=== PATIENT | male | born 1990 | race Hispanic/Latino ===

== ENCOUNTER 2019-07-17 18:16 | Emergency (ER) | payer OTHER, SELFPAY ==
[2019-07-17] MEDS ORDERED: METOCLOPRAMIDE 10 MG/2mL INJ ONE (18:53)
[2019-07-17] MEDS ORDERED: NA CHLORIDE 0.9% 1,000 ML ONE (18:54)
[2019-07-17] MEDS ORDERED: dexAMETHasone 10 MG/ML VIAL ONE (18:54)
[2019-07-17] MEDS ORDERED: DIPHENHYDRAMINE 50 MG/ML VIAL ONE (18:54)
[2019-07-17] MEDS ORDERED: NA CHLORIDE 0.9% 50 ML IV ONE (18:54)
[2019-07-17] MEDS ORDERED: ONDANSETRON 4 MG/2 ML VIAL ONE (18:54)
--- NOTE | 2019-07-17 20:16 | EDPHYS ---
Physician Documentation [facility] Name: Hilario Lezama Age: 29 yrs Sex: Male : 1990 Arrival Date: 07/17/2019 Time: 18:17 Bed 6 Private MD: ED Physician Amarjit Osuna HPI: 07/16 18:40 This 29 yrs old Male presents to ER via Ambulatory with complaints of Headache cp - migraine. 18:40 The patient complains of pain to the top of head and forehead. Onset: The cp symptoms/episode began/occurred 1 hour(s) ago. 18:40 The patient describes the headache as aching. cp 18:40 Associated signs and symptoms: Pertinent positives: nausea, Photophobia vomiting, cp Pertinent negatives: altered mental status, fever, neck stiffness, sinus congestion, sinus tenderness, weakness. Severity of symptoms: in the emergency department the pain a " 10" out of "10". Headache History: The patient has had previous headaches and this one is similar to previous episodes. Historical: - Allergies: 18:33 No Known Allergies; ll1 - PMHx: 18:33 Migraines; ll1 - PSHx: 18:33 Tonsillectomy; ll1 - Social history:: Patient/guardian denies using alcohol, street drugs, tobacco products. ROS: 18:50 Constitutional: Negative for body aches, chills, fever, poor PO intake. cp 18:50 Eyes: Negative for injury, pain, redness, and discharge. cp 18:50 ENT: Negative for drainage from ear(s), ear pain, sore throat, difficulty swallowing, difficulty handling secretions. 18:50 Cardiovascular: Negative for chest pain. 18:50 Respiratory: Negative for cough, shortness of breath, wheezing. 18:50 Abdomen/GI: Positive for nausea and vomiting, Negative for abdominal pain, diarrhea, constipation. 18:50 Skin: Negative for rash. 18:50 Neuro: Positive for headache, Negative for altered mental status, weakness. 18:50 All other systems are negative. Exam: 18:55 Constitutional: The patient appears in no acute distress, alert, awake, non-toxic, well cp developed, well nourished. 18:55 Head/Face: Normocephalic, atraumatic. cp 18:55 Eyes: Periorbital structures: appear normal, Pupils: equal, round, and reactive to light and accomodation, Extraocular movements: intact throughout, Conjunctiva: normal, no exudate, no injection, Lids and lashes: appear normal, bilaterally. 18:55 ENT: External ear(s): are unremarkable, Ear canal(s): are normal, clear, TM's: bulging, is not appreciated, bilaterally, dullness, bilaterally, erythema, is not appreciated, bilaterally, Nose: is normal, Mouth: is normal, Posterior pharynx: is normal, airway is patent, no erythema, no exudate. 18:55 Neck: ROM/movement: is normal, is supple, without pain, no range of motions limitations, no meningismus, no nuchal rigidity. 18:55 Chest/axilla: Inspection: normal. 18:55 Cardiovascular: Rate: normal, Rhythm: regular. 18:55 Respiratory: the patient does not display signs of respiratory distress, Respirations: normal, no use of accessory muscles, labored breathing, is not present. 18:55 Abdomen/GI: Inspection: abdomen appears normal, Palpation: abdomen is soft and non-tender, in all quadrants. 18:55 Neuro: Orientation: to person, place \\T\\ time. Mentation: is normal, Cerebellar function: is grossly normal, Motor: moves all fours, strength is normal, Sensation: is normal, Gait: is steady. Vital Signs: 18:31 BP 147 / 102; Pulse 65; Resp 17; Temp 97.5; Pulse Ox 97% ; Pain 10/10; ll1 20:07 BP 128 / 85; Pulse 74; Resp 16; Pulse Ox 100% on R/A; Pain 3/10; jb4 MDM: 18:26 Patient medically screened. cp 19:00 Differential diagnosis: intracerebral hemorrhage, meningitis, meningoencephalitis, cp migraine, sinusitis, subarachnoid bleed, tension headache. 20:15 Data reviewed: vital signs, nurses notes, and as a result, I will discharge patient. cp 20:15 Counseling: I had a detailed discussion with the patient and/or guardian regarding: the cp historical points, exam findings, and any diagnostic results supporting the discharge/admit diagnosis, to return to the emergency department if symptoms worsen or persist or if there are any questions or concerns that arise at home. Response to treatment: the patient's symptoms have markedly improved after treatment. 04/26 18:39 Order name: IV; Complete Time: 18:53 cp Administered Medications: 18:55 Drug: NS 0.9% 1000 ml Route: IV; Rate: 1 bolus; Site: left antecubital; ph 19:30 Follow up: Response: No adverse reaction; IV Status: Completed infusion; IV Intake: jb4 1000ml 18:55 Drug: Benadryl 25 mg Route: IVP; Site: left antecubital; ph 19:30 Follow up: Response: No adverse reaction jb4 18:56 Drug: Zofran (Ondansetron) 4 mg Route: IVP; Site: left antecubital; ph 20:25 Follow up: Response: No adverse reaction; Nausea is decreased jb4 18:58 Drug: Decadron - Dexamethasone 10 mg Route: IVP; Site: left antecubital; ph 19:30 Follow up: Response: No adverse reaction; Pain is decreased jb4 19:00 Drug: Reglan 10 mg Route: IVP; Site: left antecubital; ph 20:00 Follow up: Response: No adverse reaction; Marked relief of symptoms jb4 Disposition: 07/17 10:08 Co-signature as Attending Physician, Amarjit Osuna MD I agree with the assessment and ines plan of care. Disposition: 07/17/19 20:15 Discharged to Home. Impression: Headache. - Condition is Stable. - Discharge Instructions: Migraine Headache. - Prescriptions for Imitrex 50 mg Oral Tablet - take 1 tablet by ORAL route one time - x 1 dose with fluids as early as possible after the onset of a migraine attack; if headache returns, the dose may be repeated after 2 hours, not to exceed a total daily dose of 4 tablets;. Zofran 4 mg Oral Tablet - take 1 tablet by ORAL route every 12 hours As needed; 20 tablet. - Medication Reconciliation Form, Thank You Letter, Antibiotic Education, Prescription Opioid Use form. - Follow up: Private Physician; When: 2 - 3 days; Reason: Recheck today's complaints. - Problem is an acute exacerbation. - Symptoms have improved. Signatures: Amarjit Osuna MD MD cha Hall, Patricia RN Amarjit Salinas ph, PA PA cp Bryson, James, RN RN jb4 Melina Osborn RN RN ll1 Corrections: (The following items were deleted from the chart) 04/26 20:26 20:15 07/17/2019 20:15 Discharged to Home. Impression: Headache. Condition is Stable. jb4 Forms are Medication Reconciliation Form, Thank You Letter, Antibiotic Education, Prescription Opioid Use. Follow up: Private Physician; When: 2 - 3 days; Reason: Recheck today's complaints. Problem is an acute exacerbation. Symptoms have improved. cp
--- NOTE | 2019-07-17 20:16 | ER ---
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 Couldn't hold down ll1 Excedrin. Coronavirus screen: Proceed with normal triage. Patient denies a cough. Patient denies shortness of breath or difficulty breathing. Patient denies measured and/or subjective temperature greater than 100.4F prior to today's visit. Patient denies travel on a cruise ship or to a country the [facility] currently lists as an affected area. Patient denies contact with known and/or suspected case of COVID-19. Ebola Screen: Patient denies travel to an Ebola-affected area in the 21 days before illness onset. Initial Sepsis Screen: Does the patient meet any 2 criteria? No. Patient's initial sepsis screen is negative. Does the patient have a suspected source of infection? No. Patient's initial sepsis screen is negative. Risk Assessment: Do you want to hurt yourself or someone else? Patient reports no desire to harm self or others. Onset of symptoms was July 17, 2019. 18:31 Method Of Arrival: Ambulatory ll1 18:31 Acuity: ANNA 3 ll1 Historical: - Allergies: 18:33 No Known Allergies; ll1 - PMHx: 18:33 Migraines; ll1 - PSHx: 18:33 Tonsillectomy; ll1 - Social history:: Patient/guardian denies using alcohol, street drugs, tobacco products. Screenin:11 Abuse screen: Denies threats or abuse. Denies injuries from another. Nutritional ph screening: No deficits noted. Tuberculosis screening: No symptoms or risk factors identified. Fall Risk None identified. Assessment: 19:05 General: Appears in no apparent distress. uncomfortable, well groomed, Behavior is ph calm, cooperative, appropriate for age. Pain: Complains of pain in forehead and top of head Pain currently is 10 out of 10 on a pain scale. Neuro: Level of Consciousness is awake, alert, obeys commands, Oriented to person, place, time, situation, Moves all extremities. Full function Speech is normal, Facial symmetry appears normal, Reports blurred vision headache frontal area, photophobia Denies weakness. Cardiovascular: Capillary refill < 3 seconds in bilateral fingers Patient's skin is warm and dry. Respiratory: Airway is patent Respiratory effort is even, unlabored, Respiratory pattern is regular, symmetrical. GI: Reports nausea, vomiting. Derm: Skin is intact, is healthy with good turgor, Skin is pink, warm \T\ dry. Musculoskeletal: Circulation, motion, and sensation intact. Range of motion: intact in all extremities. 19:23 Reassessment: Patient appears in no apparent distress at this time. Patient is alert, jb4 oriented x 3, equal unlabored respirations, skin warm/dry/pink. Pt reports pain has decreased to 8/10 and denies nausea and vomiting. 20:07 Reassessment: Patient appears in no apparent distress at this time. Patient and/or jb4 family updated on plan of care and expected duration. Pain level reassessed. Patient is alert, oriented x 3, equal unlabored respirations, skin warm/dry/pink. Pt rates pain at 3/10 Patient states feeling better. 20:23 Reassessment: Patient appears in no apparent distress at this time. Patient is alert, jb4 oriented x 3, equal unlabored respirations, skin warm/dry/pink. PT verbalized understanding of d/c and follow up instructions. Denies questions or concerns. Ambulated out of ED with steady gait. Vital Signs: 18:31 BP 147 / 102; Pulse 65; Resp 17; Temp 97.5; Pulse Ox 97% ; Pain 10/10; ll1 20:07 BP 128 / 85; Pulse 74; Resp 16; Pulse Ox 100% on R/A; Pain 3/10; jb4 ED Course: 18:17 Patient arrived in ED. am2 18:18 Amarjit Betancourt PA is PHCP. cp 18:18 Amarjit Osuna MD is Attending Physician. cp 18:32 Gala Abrams, GRECIA is Primary Nurse. ph 18:32 Triage completed. ll1 18:33 Arm band placed on Patient placed in an exam room, on a stretcher. ll1 18:33 Door closed. Lights dimmed. ll1 18:45 Inserted saline lock: 20 gauge in left antecubital area, using aseptic technique. kj1 19:11 Patient has correct armband on for positive identification. Bed in low position. ph 19:39 Primary Nurse role handed off by Gala Abrams RN jb4 19:39 Ever Salgado, RN is Primary Nurse. jb4 20:23 No provider procedures requiring assistance completed. IV discontinued, intact, jb4 bleeding controlled, No redness/swelling at site. Pressure dressing applied. Administered Medications: 18:55 Drug: NS 0.9% 1000 ml Route: IV; Rate: 1 bolus; Site: left antecubital; ph 19:30 Follow up: Response: No adverse reaction; IV Status: Completed infusion; IV Intake: jb4 1000ml 18:55 Drug: Benadryl 25 mg Route: IVP; Site: left antecubital; ph 19:30 Follow up: Response: No adverse reaction jb4 18:56 Drug: Zofran (Ondansetron) 4 mg Route: IVP; Site: left antecubital; ph 20:25 Follow up: Response: No adverse reaction; Nausea is decreased jb4 18:58 Drug: Decadron - Dexamethasone 10 mg Route: IVP; Site: left antecubital; ph 19:30 Follow up: Response: No adverse reaction; Pain is decreased jb4 19:00 Drug: Reglan 10 mg Route: IVP; Site: left antecubital; ph 20:00 Follow up: Response: No adverse reaction; Marked relief of symptoms jb4 Intake: 19:30 IV: 1000ml; Total: 1000ml. jb4 Outcome: 20:15 Discharge ordered by . cp 20:23 Discharged to home ambulatory. jb4 20:23 Condition: stable 20:23 Discharge instructions given to patient, Instructed on discharge instructions, follow up and referral plans. medication usage, Demonstrated understanding of instructions, follow-up care, medications, Prescriptions given X 2. 20:26 Patient left the ED. jb4 Signatures: Gala Abrams, RN RN Amarjit Roland PA PA cp Ever Salgado, GRECIA RN jb4 Joanne Coe Kandis kj1 Melina Osborn RN RN ll1
[2019-07-17 20:33] VITALS: TEMP 97.5
[2019-07-17 20:34] VITALS: BP 128/85; O2SAT 100
== END 2019-07-17 20:26 | disposition home or self-care (01) ==
LOC: ER 18:16
DX: R51 Headache (principal)
CPT/HCPCS: 96361; 96374; 96375; 99283; J1100; J1200; J2405; J2765; J7030

== ENCOUNTER 2020-04-18 20:11 | Emergency (ER) | payer SELFPAY | END 2020-04-18 20:22 | disposition left against medical advice (07) | LOC: ER 20:11 | DX: Z53.21 Procedure and treatment not carried out due to patient leaving prior to being seen by health care provider (principal) ==

== ENCOUNTER 2020-05-09 02:43 | Emergency (ER) | payer SELFPAY ==
--- NOTE | 2020-05-09 04:21 | EDPHYS ---
Physician Documentation [facility] Name: Hilario Lezama Age: 30 yrs Sex: Male : 1990 Arrival Date: 05/09/2020 Time: 02:46 Bed External Waiting Private MD: ED Physician Administered Medications: No medications were administered Disposition: 05/09/20 04:20 Patient left the facility Before Triage. - Patient left due to wait time. - Condition is Stable. Signatures: Manny Cabezas RN RN Shoaib Crabone MD MD varnishing machine operator: (The following items were deleted from the chart) 05/09 04:05 03:57 Patient medically screened. radha rn
--- NOTE | 2020-05-09 04:21 | ER ---
Nurse's Notes [facility] Name: Hilario Lezama Age: 30 yrs Sex: Male : 1990 Arrival Date: 05/09/2020 Time: 02:46 Bed External Waiting Private MD: Diagnosis: Assessment: 05/09 04:09 Reassessment: pt called from [facility], waiting in his car.. awaiting patient to come into [facility] at this time. ED Course: 02:46 Patient arrived in ED. do 03:57 Shoaib Carbone MD is Attending Physician. rn 04:13 Manny Cabezas RN is Primary Nurse. Administered Medications: No medications were administered Outcome: 04:20 Patient left the ED. Signatures: Manny Cabezas RN RN Shoaib Carbone MD MD rn [place]letree, Danielle do
== END 2020-05-09 04:20 | disposition left against medical advice (07) ==
LOC: ER 02:43
DX: Z53.21 Procedure and treatment not carried out due to patient leaving prior to being seen by health care provider (principal)

== ENCOUNTER 2020-09-17 00:08 | Emergency (ER) | payer SELFPAY ==
--- NOTE | 2020-09-17 01:25 | ER ---
Nurse's Notes [facility] Name: Hilario Lezama Age: 30 yrs Sex: Male : 1990 Arrival Date: 09/17/2020 Time: 00:12 Bed Waiting Private MD: Diagnosis: Presentation: 09/17 00:57 Chief complaint: Patient states: he started having a migraine since 2344 took some bb ibuprofen but it is not helping, he has hx of migraines and this is similar to ones in the past also is photophobic. Coronavirus screen: At this time, the client does not indicate any symptoms associated with coronavirus-19. Ebola Screen: No symptoms or risks identified at this time. Initial Sepsis Screen: Does the patient meet any 2 criteria? No. Patient's initial sepsis screen is negative. Does the patient have a suspected source of infection? No. Patient's initial sepsis screen is negative. Risk Assessment: Do you want to hurt yourself or someone else? Patient reports no desire to harm self or others. Onset of symptoms was September 17, 2020. 00:57 Method Of Arrival: Ambulatory bb 00:57 Acuity: ANNA 4 bb Triage Assessment: 00:59 Headache History: The patient has had previous headaches and this one is similar to bb previous episodes. General: Appears uncomfortable, Behavior is cooperative, anxious. Pain: Complains of pain in head Pain currently is 10 out of 10 on a pain scale. Pain began 2 hours ago. Also complains of photophobia. Neuro: Level of Consciousness is awake, alert, obeys commands, Oriented to person, place, time, situation. Cardiovascular: Capillary refill < 3 seconds Patient's skin is warm and dry. Respiratory: Respiratory effort is even, unlabored, Respiratory pattern is regular. GI: Reports vomiting. Derm: Skin is pink, warm \T\ dry. Musculoskeletal: Circulation, motion, and sensation intact. Historical: - Allergies: 00:59 No Known Allergies; bb - PMHx: 00:59 Migraines; bb - Immunization history:: Adult Immunizations up to date. - Social history:: Smoking status: Patient denies any tobacco usage or history of. Vital Signs: 00:57 BP 134 / 85; Pulse 69; Resp 16 S; Temp 98.1(O); Pulse Ox 100% on R/A; Weight 81.65 kg bb (R); Height 5 ft. 10 in. (177.80 cm) (R); Pain 10; 00:57 Body Mass Index 25.83 (81.65 kg, 177.80 cm) bb ED Course: 00:12 Patient arrived in ED. bp1 00:59 Triage completed. bb 00:59 Arm band placed on Patient placed in waiting room, Patient notified of wait time. bb 01:25 Patient's name was called from ER lobby. No response. Unable to locate patient. Will bb disposition as left without being seen by a provider. Administered Medications: No medications were administered Outcome: 01:25 Patient left the ED. bb Signatures: Rosalba Bhatt RN RN bb [place] bp1
[2020-09-17 01:34] VITALS: BP 134/85; TEMP 98.1; O2SAT 100
== END 2020-09-17 01:25 | disposition left against medical advice (07) ==
LOC: ER 00:08
DX: Z02.9 Encounter for administrative examinations, unspecified (principal)
CPT/HCPCS: 99281

== ENCOUNTER 2020-10-06 07:23 | Emergency (ER) | payer SELFPAY ==
[2020-10-06] MEDS ORDERED: DIPHENHYDRAMINE 50 MG/ML VIAL ONE (08:07)
[2020-10-06] MEDS ORDERED: METOCLOPRAMIDE 10 MG/2mL INJ ONE (08:07)
[2020-10-06] MEDS ORDERED: KETOROLAC 30 MG/ML INJ ONE (08:07)
[2020-10-06] MEDS ORDERED: NA CHLORIDE 0.9% 50 ML ONE (08:07)
[2020-10-06] MEDS ORDERED: NA CHLORIDE 0.9% 1,000 ML ONE (08:07)
[2020-10-06] MEDS ORDERED: dexAMETHasone 10 MG/ML VIAL ONE (08:07)
--- NOTE | 2020-10-06 08:40 | EDPHYS ---
Physician Documentation [facility] Name: Hilario Lezama Age: 30 yrs Sex: Male : 1990 Arrival Date: 10/06/2020 Time: 07:26 Bed 15 Private MD: ED Physician Shoaib Carbone HPI: 10/06 07:32 This 30 yrs old Male presents to ER via Unassigned with complaints of Headache.rn 07:32 The patient complains of pain to the top of head and forehead. The patient describes rn the headache as aching. Onset: The symptoms/episode began/occurred last night. Associated signs and symptoms: Pertinent positives: nausea, Pertinent negatives: altered mental status, fever, neck stiffness, rash, vision loss, vertigo. Severity of symptoms: At its worst the pain was moderate, "similar to past headaches", in the emergency department the pain is unchanged. Headache History: The patient has had previous headaches and this one is similar to previous episodes. The symptoms are alleviated by nothing. the symptoms are aggravated by lights, noise. The patient has experienced similar episodes in the past. The patient has not recently seen a physician. Historical: - Allergies: 07:38 No Known Allergies; ll1 - PMHx: 07:38 Migraines; ll1 - PSHx: 07:38 Tonsillectomy; ll1 - Immunization history:: Flu vaccine is not up to date. - Social history:: Smoking status: Patient denies any tobacco usage or history of. - Family history:: not pertinent. - Hospitalizations: : No recent hospitalization is reported. ROS: 07:32 Constitutional: Negative for fever, chills, and weight loss, Eyes: Negative for injury, rn pain, redness, and discharge, ENT: Negative for injury, pain, and discharge, Neck: Negative for injury, pain, and swelling, Cardiovascular: Negative for chest pain, palpitations, and edema, Respiratory: Negative for shortness of breath, cough, wheezing, and pleuritic chest pain, Abdomen/GI: Negative for abdominal pain, diarrhea, and constipation, Back: Negative for injury and pain, MS/Extremity: Negative for injury and deformity, Skin: Negative for injury, rash, and discoloration, Neuro: Negative for weakness, numbness, tingling, and seizure. 07:34 All other systems are negative. rn Exam: 07:32 Constitutional: This is a well developed, well nourished patient who is awake, alert, rn and in no acute distress. Head/Face: Normocephalic, atraumatic. Eyes: Pupils equal round and reactive to light, extra-ocular motions intact. Periorbital areas with no swelling, redness, or edema. ENT: No stridor Neck: Trachea midline, no masses palpated. Supple, full range of motion without nuchal rigidity, or vertebral point tenderness. No Meningismus. Cardiovascular: Regular rate and rhythm. No pulse deficits. Respiratory: No increased work of breathing, no retractions or nasal flaring. Skin: Warm, dry with normal turgor. Normal color with no rashes, no lesions, and no evidence of cellulitis. MS/ Extremity: Pulses equal, no cyanosis. Neurovascular intact. Full, normal range of motion. Equal circumference. Neuro: Awake and alert, GCS 15, oriented to person, place, time, and situation. Cranial nerves II-XII grossly intact. Motor strength 5/5 in all extremities. Sensory grossly intact. Cerebellar exam normal. Vital Signs: 07:38 BP 113 / 64; Pulse 90; Resp 17; Temp 97.8; Pulse Ox 96% ; Weight 80.74 kg; Height 5 ft. ll1 10 in. (177.80 cm); Pain 10/10; 07:38 Body Mass Index 25.54 (80.74 kg, 177.80 cm) ll1 Patricia Coma Score: 08:15 Eye Response: spontaneous(4). Verbal Response: oriented(5). Motor Response: obeys rn commands(6). Total: 15. MDM: 07:26 Patient medically screened. rn 08:15 Differential diagnosis: cluster headache, migraine, tension headache, vasomotor rn headache. Data reviewed: vital signs, nurses notes, old medical records. Counseling: I had a detailed discussion with the patient and/or guardian regarding: the historical points, exam findings, and any diagnostic results supporting the discharge/admit diagnosis, the need for outpatient follow up, to return to the emergency department if symptoms worsen or persist or if there are any questions or concerns that arise at home. Response to treatment: the patient's symptoms have markedly improved after treatment. 08:38 Special discussion: I discussed with the patient/guardian in detail that at this point rn there is no indication for admission to the hospital. It is understood, however, that if the symptoms persist or worsen the patient needs to return immediately for re-evaluation. Based on the history and exam findings, there is no indication for further emergent testing or inpatient evaluation. I discussed with the patient/guardian the need to see the neurologist for further evaluation of the symptoms. ED course: Pt improved, sleeping comfortably, normal neuro exam, symptoms identical to previous migraines, will dc home. . 10/06 07:32 Order name: IV Start; Complete Time: 08:05 rn Administered Medications: 08:10 Drug: NS 0.9% 1000 ml Route: IV; Rate: 1000 ml; Site: right forearm; ph 09:22 Follow up: IV Status: Completed infusion ss 08:10 Drug: Ketorolac 30 mg Route: IVP; Site: right forearm; ph 09:22 Follow up: Response: No adverse reaction; Marked relief of symptoms; Pain is decreased ss 08:10 Drug: Decadron - Dexamethasone 10 mg Route: IVP; Site: right forearm; ph 09:22 Follow up: Response: No adverse reaction; Pain is decreased ss 08:11 Drug: Reglan (metoCLOPramide) 10 mg Route: IVP; Site: right forearm; ph 09:22 Follow up: Response: No adverse reaction; Marked relief of symptoms; Pain is decreased ss Disposition Summary: 10/06/20 08:39 Discharge Ordered Location: Home rn Problem: an ongoing problem rn Symptoms: have improved rn Condition: Stable rn Diagnosis - Migraine with aura, not intractable, without status migrainosus rn Followup: rn - With: Private Physician - When: As needed - Reason: Recheck today's complaints, Re-evaluation by your physician Discharge Instructions: - Discharge Summary Sheet rn - Migraine Headache rn - Recurrent Migraine Headache rn Forms: - Medication Reconciliation Form rn - Thank You Letter rn - Antibiotic information technology intern - Prescription Opioid Use rn Signatures: Shoaib Carbone MD MD rn Hall, Patricia, RN RN ph Lewis, Lynsay, RN RN ll Stephanie Powers RN Corrections: (The following items were deleted from the chart) 07:35 07:32 Constitutional: This is a well developed, well nourished patient who is awake, rn alert, and in no acute distress. Head/Face: Normocephalic, atraumatic. Eyes: Pupils equal round and reactive to light, extra-ocular motions intact. Periorbital areas with no swelling, redness, or edema. Neck: Trachea midline, no masses palpated. Supple, full range of motion without nuchal rigidity, or vertebral point tenderness. No Meningismus. Cardiovascular: Regular rate and rhythm. No pulse deficits. Respiratory: No increased work of breathing, no retractions or nasal flaring. Skin: Warm, dry with normal turgor. Normal color with no rashes, no lesions, and no evidence of cellulitis. MS/ Extremity: Pulses equal, no cyanosis. Neurovascular intact. Full, normal range of motion. Equal circumference. Neuro: Awake and alert, GCS 15, oriented to person, place, time, and situation. Cranial nerves II-XII grossly intact. Motor strength 5/5 in all extremities. Sensory grossly intact. Cerebellar exam normal. rn
--- NOTE | 2020-10-06 08:40 | ER ---
Nurse's Notes [facility] Name: Hilario Lezama Age: 30 yrs Sex: Male : 1990 Arrival Date: 10/06/2020 Time: 07:26 Bed 15 Private MD: Diagnosis: Migraine with aura, not intractable, without status migrainosus Presentation: 10/06 07:38 Chief complaint: Patient states: POLLOCK with N/V started last night while drinking alcohol. ll1 History of similar migraines. No fever. Coronavirus screen: Client denies travel out of the [place] in the last 14 days. At this time, the client does not indicate any symptoms associated with coronavirus-19. Ebola Screen: Patient denies travel to an Ebola-affected area in the 21 days before illness onset. No symptoms or risks identified at this time. Initial Sepsis Screen: Does the patient meet any 2 criteria? No. Patient's initial sepsis screen is negative. Does the patient have a suspected source of infection? No. Patient's initial sepsis screen is negative. Risk Assessment: Do you want to hurt yourself or someone else? Patient reports no desire to harm self or others. Onset of symptoms was October 05, 2020. 07:38 Method Of Arrival: Ambulatory 1 07:38 Acuity: ANNA 3 ll1 Triage Assessment: 08:14 Headache History: The patient has had previous headaches and this one is similar to ph previous episodes. Historical: - Allergies: 07:38 No Known Allergies; ll1 - PMHx: 07:38 Migraines; ll1 - PSHx: 07:38 Tonsillectomy; ll1 - Immunization history:: Flu vaccine is not up to date. - Social history:: Smoking status: Patient denies any tobacco usage or history of. - Family history:: not pertinent. - Hospitalizations: : No recent hospitalization is reported. Screenin:40 Abuse screen: Denies threats or abuse. Nutritional screening: No deficits noted. ll1 Tuberculosis screening: No symptoms or risk factors identified. 08:14 Fall Risk None identified. ph Assessment: 08:11 General: Appears in no apparent distress. uncomfortable, slender, well groomed, ph Behavior is calm, cooperative, appropriate for age, Denies fever, feeling ill. Pain: Complains of pain in forehead and top of head. Neuro: Level of Consciousness is awake, alert, obeys commands, Oriented to person, place, time, situation, Reports blurred vision headache frontal area, photophobia. Cardiovascular: Capillary refill < 3 seconds in bilateral fingers Patient's skin is warm and dry. Respiratory: Airway is patent Respiratory effort is even, unlabored. Derm: Skin is intact, is healthy with good turgor, Skin is pink, warm \T\ dry. Musculoskeletal: Circulation, motion, and sensation intact. Range of motion: intact in all extremities. 08:44 Reassessment: D/C pending completion of IV fluids. ph Vital Signs: 07:38 BP 113 / 64; Pulse 90; Resp 17; Temp 97.8; Pulse Ox 96% ; Weight 80.74 kg; Height 5 ft. ll1 10 in. (177.80 cm); Pain 10/10; 07:38 Body Mass Index 25.54 (80.74 kg, 177.80 cm) ll1 Patricia Coma Score: 08:15 Eye Response: spontaneous(4). Verbal Response: oriented(5). Motor Response: obeys rn commands(6). Total: 15. ED Course: 07:26 Patient arrived in ED. mr 07:26 Shoaib Carbone MD is Attending Physician. rn 07:30 Arm band placed on Patient placed in an exam room, on a stretcher. ll1 07:37 Gala Abrams, RN is Primary Nurse. ph 07:40 Triage completed. ll1 07:40 Patient has correct armband on for positive identification. Bed in low position. Call ll1 light in reach. Side rails up X 1. 08:13 Inserted saline lock: 20 gauge in right forearm, using aseptic technique. ph 09:21 No provider procedures requiring assistance completed. IV discontinued, intact, ss bleeding controlled, No redness/swelling at site. Pressure dressing applied. Administered Medications: 08:10 Drug: NS 0.9% 1000 ml Route: IV; Rate: 1000 ml; Site: right forearm; ph 09:22 Follow up: IV Status: Completed infusion ss 08:10 Drug: Ketorolac 30 mg Route: IVP; Site: right forearm; ph 09:22 Follow up: Response: No adverse reaction; Marked relief of symptoms; Pain is decreased ss 08:10 Drug: Decadron - Dexamethasone 10 mg Route: IVP; Site: right forearm; ph 09:22 Follow up: Response: No adverse reaction; Pain is decreased ss 08:11 Drug: Reglan (metoCLOPramide) 10 mg Route: IVP; Site: right forearm; ph 09:22 Follow up: Response: No adverse reaction; Marked relief of symptoms; Pain is decreased Outcome: 08:39 Discharge ordered by . rn 09:21 Discharged to home ambulatory. 09:21 Condition: good 09:21 Discharge instructions given to patient, Instructed on discharge instructions, follow up and referral plans. Demonstrated understanding of instructions, follow-up care, medications. 09:22 Patient left the ED. Signatures: Aziza Gunter Roman, MD MD rn Smirch, GRECIA Brown RN Gala Abrams RN RN Melina Osborn RN RN ll1
[2020-10-06 09:29] VITALS: BP 113/64; TEMP 97.8; O2SAT 96
== END 2020-10-06 09:22 | disposition home or self-care (01) ==
LOC: ER 07:23
DX: G43.109 Migraine with aura, not intractable, without status migrainosus (principal)
CPT/HCPCS: 96361; 96374; 96375; 99283; J1100; J1200; J2765; J7030

== ENCOUNTER 2021-01-06 20:15 | Emergency (ER) | payer SELFPAY ==
[2021-01-06] MEDS ORDERED: DIPHENHYDRAMINE 50 MG/ML VIAL ONE (21:37)
[2021-01-06] MEDS ORDERED: METOCLOPRAMIDE 10 MG/2mL INJ ONE (21:37)
[2021-01-06] MEDS ORDERED: NA CHLORIDE 0.9% 1,000 ML ONE (21:37)
[2021-01-06] MEDS ORDERED: KETOROLAC 30 MG/ML INJ ONE (21:37)
--- NOTE | 2021-01-06 22:32 | EDPHYS ---
Physician Documentation [facility] Name: Hilario Lezama Age: 30 yrs Sex: Male : 1990 Arrival Date: 01/06/2021 Time: 20:17 Bed 26 Private MD: ED Physician Pablito Torres HPI: 01/06 20:54 This 30 yrs old Male presents to ER via Ambulatory with complaints of Headache.pm1 20:54 The patient complains of pain to the forehead. The patient describes the headache as pm1 throbbing. 20:54 Onset: The symptoms/episode began/occurred 1 hour(s) ago. Associated signs and pm1 symptoms: Pertinent positives: nausea, Photophobia vomiting. Severity of symptoms: in the emergency department the pain a " 10" out of "10". Headache History: The patient has had previous headaches and this one is similar to previous episodes. The symptoms are alleviated by Darkened room, the symptoms are aggravated by lights, noise. The patient has experienced similar episodes in the past, multiple times, and the symptoms today are exactly the same, to previous migraines. The patient has not recently seen a physician. Historical: - Allergies: 20:43 No Known Allergies; dc2 - PMHx: 20:43 Migraines; dc2 - PSHx: 20:43 Tonsillectomy; dc2 - Immunization history:: Adult Immunizations up to date, Client reports having NOT received the Covid vaccine. Last tetanus immunization: up to date Flu vaccine is not up to date. - Social history:: Smoking status: Patient uses occasionally cigarette, Patient/guardian denies using alcohol, street drugs, IV drugs. ROS: 20:54 Constitutional: Negative for fever, chills, and weight loss. pm1 20:54 Cardiovascular: Negative for chest pain, palpitations, and edema, Respiratory: Negative for shortness of breath, cough, wheezing, and pleuritic chest pain, Abdomen/GI: Negative for abdominal pain, nausea, vomiting, diarrhea, and constipation, MS/Extremity: Negative for injury and deformity, Skin: Negative for injury, rash, and discoloration. 20:54 Neuro: Positive for headache, Negative for numbness, tingling, weakness. 20:54 All other systems are negative. pm1 Exam: 20:54 Constitutional: This is a well developed, well nourished patient who is awake, alert, pm1 and in no acute distress. Head/Face: Normocephalic, atraumatic. 20:54 Back: No spinal tenderness. No costovertebral tenderness. Full range of motion. Skin: Warm, dry with normal turgor. Normal color with no rashes, no lesions, and no evidence of cellulitis. MS/ Extremity: Pulses equal, no cyanosis. Neurovascular intact. Full, normal range of motion. 20:54 Eyes: Exam is negative for acute changes, Pupils: no acute changes, Extraocular movements: no acute changes. 20:54 ENT: Exam is negative for Mouth: no acute changes, Lips: normal, moist, Oral mucosa: normal, pink and intact, moist. 20:54 Cardiovascular: Exam negative for acute changes, Rate: normal, Rhythm: regular, Pulses: no pulse deficits are appreciated. 20:54 Respiratory: Exam negative for acute changes, respiratory distress, shortness of breath. 20:54 Abdomen/GI: Exam negative for acute changes, Inspection: abdomen appears normal, Palpation: abdomen is soft and non-tender. 20:54 Neuro: Exam negative for acute changes, Orientation: is normal, Mentation: is normal, Motor: is normal, moves all fours. Vital Signs: 20:44 BP 150 / 83; Pulse 73; Resp 19; Temp 96.9; Pulse Ox 100% ; Weight 81.65 kg; Height 5 dc2 ft. 10 in. (177.80 cm); Pain 10/10; 22:00 BP 117 / 79; Pulse 58; Resp 16; Pulse Ox 100% on R/A; lp1 22:42 BP 124 / 79; Pulse 62; Resp 18; Pulse Ox 100% on R/A; Pain 3/10; lp1 20:44 Body Mass Index 25.83 (81.65 kg, 177.80 cm) dc2 MDM: 20:51 Patient medically screened. pm1 21:02 Data reviewed: vital signs. Data interpreted: Pulse oximetry: on room air is 100 %. pm1 Interpretation: normal. 22:30 Medication response: 3/10 pain post administration of headache cocktail. pm1 22:30 Counseling: I had a detailed discussion with the patient and/or guardian regarding: the pm1 historical points, exam findings, and any diagnostic results supporting the discharge/admit diagnosis, the need for outpatient follow up, a neurologist, to return to the emergency department if symptoms worsen or persist or if there are any questions or concerns that arise at home. 22:46 ED course: SPOUTER aware reviewed. pm1 01/06 20:54 Order name: IV Saline Lock; Complete Time: 21:20 pm1 Administered Medications: 21:25 Drug: Reglan (metoCLOPramide) 10 mg Route: IVP; Site: left antecubital; lp1 22:41 Follow up: Response: Marked relief of symptoms lp1 21:25 Drug: Ketorolac 30 mg Route: IVP; Site: left antecubital; lp1 22:41 Follow up: Response: Marked relief of symptoms lp1 21:25 Drug: NS 0.9% 1000 ml Route: IV; Rate: 1000 ml; Site: left antecubital; lp1 22:41 Follow up: IV Status: Completed infusion; IV Intake: 1000ml lp1 21:25 Drug: Benadryl (diphenhydrAMINE) 25 mg Route: IVP; Site: left antecubital; lp1 22:41 Follow up: Response: Marked relief of symptoms lp1 Disposition: 23:25 Co-signature as Attending Physician, Pablito Torres MD. pk Disposition Summary: 01/06/21 22:31 Discharge Ordered Location: Home pm1 Problem: new pm1 Symptoms: have improved pm1 Condition: Stable pm1 Diagnosis - Headache pm1 Followup: pm1 - With: Emergency Department - When: As needed - Reason: Worsening of condition Followup: pm1 - With: Private Physician - When: 2 - 3 days - Reason: Recheck today's complaints, Continuance of care, Re-evaluation by your physician Discharge Instructions: - Discharge Summary Sheet pm1 - General Headache Without Cause pm1 Forms: - Medication Reconciliation Form pm1 - Thank You Letter pm1 - Antibiotic Education pm1 - Prescription Opioid Use pm1 Prescriptions: - [id number]-[id number] - take 1 tablet by ORAL route every 4 hours As needed; 20 tablet; Refills: 0, pm1 Product Selection Permitted - ondansetron 4 mg Oral tablet,disintegrating - place 1 tablet by TRANSLINGUAL route every 8 hours As needed; 12 tablet; pm1 Refills: 0, Product Selection Permitted Signatures: Pablito Torres MD MD pkl Chiqui Fox RN RN lp1 Chirag Banks, TAXI TRUCK DRIVER TAXI TRUCK DRIVER pm1 Mela Killian, RN RN dc2
--- NOTE | 2021-01-06 22:32 | ER ---
Nurse's Notes [facility] Name: Hilario Lezama Age: 30 yrs Sex: Male : 1990 Arrival Date: 01/06/2021 Time: 20:17 Bed 26 Private MD: Diagnosis: Headache Presentation: 01/06 20:37 Chief complaint: Patient states: Upon arrival to triage, pt found in bathroom vomiting. dc2 Pt reports headache that started about an hour ago - reports hx of migraines. [place] and photophobia, took excedrin without relief. Coronavirus screen: Vaccine status: Patient reports being unvaccinated. Client denies travel out of the [place] in the last 14 days. At this time, the client does not indicate any symptoms associated with coronavirus-19. Ebola Screen: Patient negative for fever greater than or equal to 101.5 degrees Fahrenheit, and additional compatible Ebola Virus Disease symptoms Patient denies exposure to infectious person. Patient denies travel to an Ebola-affected area in the 21 days before illness onset. No symptoms or risks identified at this time. Initial Sepsis Screen: Does the patient meet any 2 criteria? No. Patient's initial sepsis screen is negative. Risk Assessment: Do you want to hurt yourself or someone else? Patient reports no desire to harm self or others. Onset of symptoms was January 06, 2021 at 19:00. Care prior to arrival: Medication(s) given: Excedrin. 20:37 Method Of Arrival: Ambulatory dc2 20:37 Acuity: ANNA 3 dc2 20:43 Initial Sepsis Screen: Does the patient meet any 2 criteria? No. Patient's initial dc2 sepsis screen is negative. 21:29 Initial Sepsis Screen: Does the patient have a suspected source of infection? No. lp1 Patient's initial sepsis screen is negative. Triage Assessment: 20:46 Headache History: Other Hx of Migraines. General: Appears in no apparent distress. dc2 uncomfortable, slender, well groomed, Behavior is calm, cooperative. Pain: Also complains of. Pain: Complains of pain in Headach tor frontal lobe and bilateral temporals with photophobia. Historical: - Allergies: 20:43 No Known Allergies; dc2 - PMHx: 20:43 Migraines; dc2 - PSHx: 20:43 Tonsillectomy; dc2 - Immunization history:: Adult Immunizations up to date, Client reports having NOT received the Covid vaccine. Last tetanus immunization: up to date Flu vaccine is not up to date. - Social history:: Smoking status: Patient uses occasionally cigarette, Patient/guardian denies using alcohol, street drugs, IV drugs. Screenin:45 Abuse screen: Denies threats or abuse. Denies injuries from another. Nutritional dc2 screening: No deficits noted. Tuberculosis screening: No symptoms or risk factors identified. Never had TB. Fall Risk None identified. Assessment: 21:28 General: Appears uncomfortable, Behavior is appropriate for age. Pain: Complains of lp1 pain in head Pain currently is 10 out of 10 on a pain scale. Quality of pain is described as throbbing, Pain began gradually. Neuro: Level of Consciousness is awake, alert, obeys commands, Oriented to person, place, time, situation, Gait is steady, Speech is normal, Pupils are PERRLA, Reports diplopia, headache in right in left parietal area, photophobia. Cardiovascular: Patient's skin is warm and dry. Respiratory: Respiratory effort is even, unlabored. GI: Reports nausea, vomiting. : No signs and/or symptoms were reported regarding the genitourinary system. EENT: No signs and/or symptoms were reported regarding the EENT system. Derm: Skin is pink, warm \T\ dry. Musculoskeletal: No deficits noted. 22:42 Reassessment: Patient is alert, oriented x 3, equal unlabored respirations, skin lp1 warm/dry/pink. Patient states feeling better. Patient states symptoms have improved. General: Appears in no apparent distress. comfortable, Behavior is calm, cooperative, appropriate for age. Pain: Pain currently is 3 out of 10 on a pain scale. Vital Signs: 20:44 BP 150 / 83; Pulse 73; Resp 19; Temp 96.9; Pulse Ox 100% ; Weight 81.65 kg; Height 5 dc2 ft. 10 in. (177.80 cm); Pain 10/10; 22:00 BP 117 / 79; Pulse 58; Resp 16; Pulse Ox 100% on R/A; lp1 22:42 BP 124 / 79; Pulse 62; Resp 18; Pulse Ox 100% on R/A; Pain 3/10; lp1 20:44 Body Mass Index 25.83 (81.65 kg, 177.80 cm) dc2 ED Course: 20:45 Arm band placed on right wrist. dc2 20:51 [facility]irag Banks [facility]. pm1 20:51 Pablito Torres MD is Attending Physician. pm1 21:08 Chiqui Fox, GRECIA is Primary Nurse. lp1 21:20 Patient has correct armband on for positive identification. Bed in low position. Call [facility] light in reach. Side rails up X 1. Warm blanket given. Pulse ox on. NIBP on. 21:20 Inserted saline lock: 20 gauge in left antecubital area, using aseptic technique. 5 21:38 Door closed. Noise minimized. Lights dimmed. 5 22:43 No provider procedures requiring assistance completed. lp1 22:50 IV discontinued. lp1 Administered Medications: 21:25 Drug: Reglan (metoCLOPramide) 10 mg Route: IVP; Site: left antecubital; lp1 22:41 Follow up: Response: Marked relief of symptoms lp1 21:25 Drug: Ketorolac 30 mg Route: IVP; Site: left antecubital; lp1 22:41 Follow up: Response: Marked relief of symptoms lp1 21:25 Drug: NS 0.9% 1000 ml Route: IV; Rate: 1000 ml; Site: left antecubital; lp1 22:41 Follow up: IV Status: Completed infusion; IV Intake: 1000ml lp1 21:25 Drug: Benadryl (diphenhydrAMINE) 25 mg Route: IVP; Site: left antecubital; lp1 22:41 Follow up: Response: Marked relief of symptoms lp1 Intake: 22:41 IV: 1000ml; Total: 1000ml. lp1 Outcome: 22:31 Discharge ordered by . pm1 22:50 Discharged to home ambulatory. lp1 22:50 Condition: good 22:50 Discharge instructions given to patient, Instructed on discharge instructions, follow up and referral plans. medication usage, Demonstrated understanding of instructions, follow-up care, medications, Prescriptions given X 2. 22:53 Patient left the ED. lp1 Signatures: Chiqui Fox RN RN lp1 Chirag Banks NP [employer] 1 Paulette Looney [facility] [place], Ana bp1 Maria D, Mela, RN RN dc2 Corrections: (The following items were deleted from the chart) 20:35 20:20 Chief complaint: Patient states: Pt went to a baby shower and ate some things and dc2 felt stomach hurting. After getting home she took Pepto Bismol and is now feeling better. dc2 20:35 20:20 Coronavirus screen: Vaccine status: Patient reports receiving the 2nd dose of the dc2 covid vaccine. dc2 20:35 20:20 Ebola Screen: Patient negative for fever greater than or equal to 101.5 degrees dc2 Fahrenheit, and additional compatible Ebola Virus Disease symptoms Patient denies exposure to infectious person. Patient denies travel to an Ebola-affected area in the 21 days before illness onset. No symptoms or risks identified at this time. dc2 20:35 20:20 Initial Sepsis Screen: Does the patient meet any 2 criteria? No. Patient's dc2 initial sepsis screen is negative. dc2 20:35 20:20 Risk Assessment: Do you want to hurt yourself or someone else? Patient reports no dc2 desire to harm self or others. dc2 20:35 20:20 Onset of symptoms was January 06, 2021 at 17:00 dc2 dc2 20:35 20:20 Method Of Arrival: Wheelchair dc2 dc2 20:35 20:20 BP 184 / 92; Pulse 73bpm; Resp 17bpm; Pulse Ox 100%; Temp 97.0F; 65.77 kg; Height dc2 5 ft. 6 in.; BMI: 23.4; Pain 0/10; dc2 20:35 20:20 Acuity: ANNA 4 dc2 dc2 20:35 20:26 General: Appears in no apparent distress. Behavior is calm, cooperative, . dc2 dc2 20:35 20:26 Pain: Denies pain. dc2 dc2 20:35 20:26 Neuro: No deficits noted. dc2 dc2 20:36 20:17 Patient arrived in ED. bp1 dc2 20:36 20:26 Triage completed. dc2 dc2 23:05 23:05 Patient left the ED. lp1 lp1
[2021-01-06 23:10] VITALS: TEMP 96.9; O2SAT 100
[2021-01-06 23:12] VITALS: BP 124/79
== END 2021-01-06 23:05 | disposition home or self-care (01) ==
LOC: ER 20:15
DX: R51.9 Headache, unspecified (principal); Z72.0 Tobacco use
CPT/HCPCS: 96374; 96375; 99284; J1200; J2765; J7030

== ENCOUNTER 2021-02-17 16:30 | Emergency (ER) | payer SELFPAY ==
--- OUTSIDE RECORDS SUMMARY | 2021-02-17 16:35 | XMS REPORT | Continuity of Care Document ---
:1990 Author Organization [facility] t Address [address] [place] [address] Care Team Providers Name Role Phone OJEDA Attending Clinician Unavailable Sonia Cruz Attending Clinician Tammy Adkins Attending Clinician TAMMY FRANCISCO Attending Clinician Unavailable Problems This patient has no known problems. Allergies, Adverse Reactions, Alerts Allergy Allergy Status Severity Reaction(s) Onset Inactive Treating Comm ents Source Name Type Date Date Clinician NO KNOWN Drug Active Univers ALLERGIE Class ity of [facility] Social History Social Habit Start Date Stop Date Quantity Comments Source Exposure to Not sure [facility] SARS-CoV-2 (event) [facility] Sex Assigned At [birth year] [facility] 00:00:00 00:00:00 [facility] Smoking Status Start Date Stop Date Source Unknown if ever smoked [facility] Medications Ordered Filled Start Stop Current Ordering Indication Dosage Frequency Signature Comments Components Source Medication Medication Date Date Medication? Clinician (SIG) Name Name predniSONE 2020- No 40mg 40 mg, Univ ers (DELTASONE) 10-09 Oral, ity of tablet 40 09:15: 08:23 [place] :00 dose, [facility] 10/09/20 at Branch 0415, LD ketorolac 2020- No 30mg 30 mg, Unive rs (TORADOL) 10-0920 Intramuscu ity of injection 07:45: 06:49 lar, ONCE, [place] 30 mg 00 :00 1 dose, [facility] 10/09/20 at 0245, LD
Fa culty member approving Restricted medication : Ana Rosa FRANCISCO methocarbam 1-0 Yes [id number] 500mg Take 1 Univers oL 500 mg 7-20 tablet by ity o f tablet 00:00: mouth 4 [place] ([facility]) Medical times [place] daily. methylPREDN 1-0 Yes [id number] Take by Univers ISolone 7-20 mouth ity of (MEDROL, 00:00: SEE-INSTRU Bob as LUIS,) 4 mg 00 CTIONS. Medica l tablets follow Branch package directions methocarbam 2020-0 Yes [id number] 500mg Take 1 Univers oL 500 mg 7-20 tablet by ity o f tablet 00:00: mouth 4 (four) Medical times [place] daily. methylPREDN 1-0 Yes [id number] Take by Univers ISolone 7-20 mouth ity of (MEDROL, 00:00: SEE-INSTRU Bob as ULIS,) 4 mg 00 CTIONS. Medica l tablets follow Branch package directions methocarbam 2020-0 Yes [id number] 500mg Take 1 Univers oL 500 mg 7-20 tablet by ity o f tablet 00:00: mouth 4 [place] ([facility]) Medical times [place] daily. methylPREDN 2020-0 Yes [id number] Take by Univers ISolone 7-20 mouth ity of (MEDROL, 00:00: SEE-INSTRU Bob as LUIS,) 4 mg 00 CTIONS. Medica l tablets follow Branch package directions Vital Signs Vital Name Observation Time Observation Value Comments Source Systolic blood 2020-10-13 23:35:00 163 [facility]Hg[facility] Diastolic blood 2020-10-13 23:35:00 82 mm[Hg] [facility] Heart rate 2020-10-13 23:35:00 89 /min [facility] Body temperature 2020-10-13 23:35:[address] [facility] Respiratory rate 2020-10-13 23:35:00 20 /min [facility] Body weight 2020-10-13 23:35:00 81.647 kg [facility] BMI 2020-10-13 23:35:00 25.83 kg/m2 [facility] Oxygen saturation in 2020-10-13 23:35:00 97 /min University of Arterial blood by [facility] Pulse oximetry Branch Systolic blood 2020-10-13 21:40:00 146 mm[Hg] Univer sity of pressure [facility] Diastolic blood 2020-10-13 21:40:00 73 mm[Hg] Unive rsity of pressure [facility] Heart rate 2020-10-13 21:40:00 74 /min [facility] [place] [facility] Respiratory rate 2020-10-13 21:40:00 18 /min Univ ersity [facility] [place] [facility] Body weight 2020-10-13 21:40:00 81.647 kg [facility] [place] [facility] BMI 2020-10-13 21:40:00 25.83 kg/m2 [facility] [place] [facility] Oxygen saturation in 2020-10-13 21:40:00 98 /min University of Arterial blood by [facility] Pulse oximetry Branch Systolic blood 2020-10-09 08:00:00 140 mm[Hg] Univer sity of pressure [place] [facility] Diastolic blood 2020-10-09 08:00:00 92 mm[Hg] Unive rsity of pressure [facility] Heart rate 2020-10-09 08:00:00 79 /min [facility] [place] [facility] Body temperature 2020-10-09 08:00:00 36.78 Kristina [facility] [place] [facility] Respiratory rate 2020-10-09 08:00:00 19 /min [facility] [place] [facility] Oxygen saturation in 2020-10-09 08:00:00 98 /min University of Arterial blood by [facility] Pulse oximetry Branch Body height 2020-10-09 05:18:00 177.8 cm [facility] [place] [facility] Body weight 2020-10-09 05:18:00 81.647 kg [facility] [place] [facility] BMI 2020-10-09 05:18:00 25.83 kg/m2 [facility] [place] [facility] Procedures Procedure Date / Time Performed Performing Clinician Sour e CONSENT/REFUSAL FOR 2020-10-13 23:34:55 Doctor Unassigned, No [facility] [place] DIAGNOSIS AND Name Medical Branch TREATMENT CONSENT/REFUSAL FOR 2020-10-13 21:42:40 Doctor Unassigned, No [facility] [place] DIAGNOSIS AND Name Medical Branch TREATMENT XR LUMBAR SPINE 2 VW 2020-10-09 07:00:45 Ana Rosa Francisco Univers ity of [facility] NOTICE OF PRIVACY 2020-10-09 05:08:11 Doctor Unassigned, No Univ [facility] PRACTICES Name Medical Branch CONSENT/REFUSAL FOR 2020-10-09 05:07:59 Doctor Un[facility]igned, No [facility] Name Medical Branch TREATMENT Encounters Start End Encounter Admission Attending Care Care Encounter Source Date/Time Date/Time Type Type Clinicians Facility Department ID 2020-10-13 2020-10-14 Emergency [place] [id number] 068 [place] 00:00:00 00:00:00 [facility] [address] 2020-10-13 2020-10-13 Emergency Johnnie Bright [place] [id number] Univers 18:36:00 20:47:00 T CENTER [id number] [id number] [place] [address] Branch 2020-10-13 2020-10-13 Emergency X [facility] ERT [id number] Univers 18:20:00 18:20:00 ity of [facility] 2020-10-13 2020-10-13 Emergency Ana Rosa Francisco [facility] [id number] Univers 16:42:00 16:49:00 Tammy Cabral [id number] i [id number] [id number] [address] 2020-10-13 2020-10-13 Emergency X [facility] ERT [id number] Univers 16:34:00 16:34:00 ity of [facility] 2020-10-09 2020-10-09 Emergency Ana Rosa Francisco [id number] Univers 00:26:00 03:30:00 Tammy Cabral [id number] i [id number] [id number] [address] 2020-10-09 2020-10-09 Emergency X Ana Rosa FRANCISCO [facility] ERT [id number] Univers 00:26:00 [facility]26:[facility] Results Test Description Test Time Test Comments Results Result Sourc e Comments XR LUMBAR SPINE 2020-09-21 No fracture or Univ ersity of [address] VW [address] [facility] 07:38:39 4728 Electronically [facility] signed by Federico Bingham at 10/09/2020 2:38 AM ORDERING PHYSICIAN: Ana Rosa FRANCISCO HISTORY: Lumbar pain TECHNIQUE: 3 views of the lumbar spine COMPARISON: None available. FINDINGS: There is normal vertebral body height and alignment. Disc space height is preserved. The sacroiliac joints are normal. [facility], Radiant Results Inft User - 10/09/2020 2:39 AM CDT ORDERING PHYSICIAN: Ana Rosa OLSENISTORY: Lumbar painTECHNIQUE: 3 views of the lumbar spineCOMPARISON: None available.FINDINGS: There is normal vertebral body height and alignment. Disc space height is preserved.The sacroiliac joints are normal.IMPRESSIONNo fracture or subluxation. [id number]
[2021-02-17 17:50] LABS: SARS-COV-2 RT PCR NEGATIVE (NEGATIVE)
--- NOTE | 2021-02-17 18:12 | ER ---
Nurse's Notes [facility] Name: Hilario Lezama Age: 30 yrs Sex: Male : 1990 Arrival Date: 02/17/2021 Time: 16:32 Bed Waiting Private MD: Diagnosis: Acute upper respiratory infection, unspecified Presentation: 02/17 16:36 Chief complaint: Patient states: fever (102) last night, not feeling well today, sore iw throat, nasal congestion todya. Coronavirus screen: Vaccine status: Patient reports being unvaccinated. Ebola Screen: Patient negative for fever greater than or equal to 101.5 degrees Fahrenheit, and additional compatible Ebola Virus Disease symptoms Patient denies exposure to infectious person. Patient denies travel to an Ebola-affected area in the 21 days before illness onset. No symptoms or risks identified at this time. Initial Sepsis Screen: Does the patient meet any 2 criteria? No. Patient's initial sepsis screen is negative. Does the patient have a suspected source of infection? No. Patient's initial sepsis screen is negative. Risk Assessment: Do you want to hurt yourself or someone else? Patient reports no desire to harm self or others. Onset of symptoms was February 16, 2021. 16:36 Method Of Arrival: Ambulatory iw 16:36 Acuity: ANNA 4 iw Triage Assessment: 16:39 General: Appears in no apparent distress. comfortable, Behavior is calm, cooperative. iw Pain: Denies pain. EENT: Reports nasal congestion. Historical: - Allergies: 16:39 No Known Allergies; iw - PMHx: 16:39 Migraines; iw - PSHx: 16:39 Tonsillectomy; iw - Immunization history:: Adult Immunizations not up to date. - Social history:: Smoking status: Patient denies any tobacco usage or history of. Screenin:24 Abuse screen: Denies threats or abuse. Denies injuries from another. Nutritional iw screening: No deficits noted. Tuberculosis screening: No symptoms or risk factors identified. Fall Risk None identified. Assessment: 18:00 General: Appears in no apparent distress. Behavior is calm, cooperative. Pain: Denies iw pain. Neuro: Level of Consciousness is awake, alert, obeys commands, Oriented to person, place, time, situation, Moves all extremities. Full function. Respiratory: Airway is patent Respiratory effort is even, unlabored, Breath sounds are clear bilaterally. EENT: Throat is clear. Vital Signs: 16:36 BP 122 / 91; Pulse 74; Resp 18; Temp 98.8; Pulse Ox 100% ; Weight 81.65 kg; Height 5 iw ft. 10 in. (177.80 cm); Pain 0/10; 16:36 Body Mass Index 25.83 (81.65 kg, 177.80 cm) iw ED Course: 16:32 Patient arrived in ED. as 16:34 Marva Licea FNP-C [facility]. kb 16:34 Savanah Ledesma MD is Attending Physician. kb 16:39 Triage completed. iw 16:39 Arm band placed on left wrist. iw 16:58 Miranda Hays, RN is Primary Nurse. iw 18:00 Patient has correct armband on for positive identification. iw 18:24 No provider procedures requiring assistance completed. Patient did not have IV access iw during this emergency room visit. Administered Medications: No medications were administered Outcome: 18:11 Discharge ordered by MD. kb 18:24 Discharged to home ambulatory. iw 18:24 Condition: good 18:24 Discharge instructions given to patient, Instructed on discharge instructions, follow up and referral plans. Demonstrated understanding of instructions, follow-up care. 18:25 Patient left the ED. iw Signatures: Marva Licea FNP-C FNP-Lizz Eldridge as Miranda Hays, RN RN iw Corrections: (The following items were deleted from the chart) 16:40 16:36 Pulse 74bpm; Resp 18bpm; Pulse Ox 100%; Temp 98.8F; 81.65 kg; Height 5 ft. 10 iw in.; BMI: 25.8; Pain 0/10; iw
--- NOTE | 2021-02-17 18:12 | EDPHYS ---
Physician Documentation [facility] Name: Hilario Lezama Age: 30 yrs Sex: Male : 1990 Arrival Date: 02/17/2021 Time: 16:32 Bed Waiting Private MD: ED Physician Savanah Ledesma HPI: 02/17 18:10 This 30 yrs old Male presents to ER via Ambulatory with complaints of Fever, kb Sore Throat, r/o covid. 18:10 pt reports sore throat, fever and nasal congestion that started last night. kb 18:10 The patient presents with sore throat. The patient describes throat pain as constant. kb Onset: The symptoms/episode began/occurred last night. Severity of symptoms: At their worst the symptoms were moderate, in the emergency department the symptoms are unchanged. Modifying factors: The symptoms are alleviated by nothing, the symptoms are aggravated by nothing. Associated signs and symptoms: Pertinent positives: fever, Sore throat. The patient has not experienced similar symptoms in the past. The patient has not recently seen a physician. Historical: - Allergies: 16:39 No Known Allergies; iw - PMHx: 16:39 Migraines; iw - PSHx: 16:39 Tonsillectomy; iw - Immunization history:: Adult Immunizations not up to date. - Social history:: Smoking status: Patient denies any tobacco usage or history of. ROS: 18:07 Respiratory: Negative for shortness of breath, cough, wheezing, and pleuritic chest kb pain. 18:07 Constitutional: Positive for fever. 18:07 ENT: Positive for sinus congestion, sore throat. 18:07 All other systems are negative. Exam: 18:07 Constitutional: This is a well developed, well nourished patient who is awake, alert, kb and in no acute distress. Head/Face: Normocephalic, atraumatic. ENT: Moist Mucous membranes Cardiovascular: Regular rate and rhythm with a normal S1 and S2. No gallops, murmurs, or rubs. No pulse deficits. Respiratory: Respirations even and unlabored. No increased work of breathing, no retractions or nasal flaring. Skin: Warm, dry with normal turgor. Normal color. MS/ Extremity: Pulses equal, no cyanosis. Neurovascular intact. Full, normal range of motion. Neuro: Awake and alert, GCS 15, oriented to person, place, time, and situation. Moves all extremities. Normal gait. Psych: Awake, alert, with orientation to person, place and time. Behavior, mood, and affect are within normal limits. Vital Signs: 16:36 BP 122 / 91; Pulse 74; Resp 18; Temp 98.8; Pulse Ox 100% ; Weight 81.65 kg; Height 5 iw ft. 10 in. (177.80 cm); Pain 0/10; 16:36 Body Mass Index 25.83 (81.65 kg, 177.80 cm) iw MDM: 16:34 Patient medically screened. kb 18:09 Data reviewed: vital signs, nurses notes. Data interpreted: Pulse oximetry: on room air kb is 100 %. Interpretation: normal. Counseling: I had a detailed discussion with the patient and/or guardian regarding: the historical points, exam findings, and any diagnostic results supporting the discharge/admit diagnosis, lab results, the need for outpatient follow up, a family practitioner, to return to the emergency department if symptoms worsen or persist or if there are any questions or concerns that arise at home. 02/17 16:42 Order name: COVID-19/FLU A+B (Document "Date of Onset" if Symptomatic); Complete Time: kb 17:52 02/17 16:42 Order name: Strep; Complete Time: 17:29 kb 02/17 17:28 Order name: Throat Culture EDMS Administered Medications: No medications were administered Disposition: 02/18 09:22 Co-signature as Attending Physician, Savanah Ledesma MD I agree with the assessment and sp3 plan of care. Disposition Summary: 02/17/21 18:11 Discharge Ordered Location: Home kb Condition: Stable kb Diagnosis - Acute upper respiratory infection, unspecified kb Followup: kb - With: Emergency Department - When: As needed - Reason: Worsening of condition Followup: kb - With: Private Physician - When: 2 - 3 days - Reason: Recheck today's complaints, Continuance of care, Re-evaluation by your physician Discharge Instructions: - Discharge Summary Sheet kb - Upper Respiratory Infection, Adult, [id number] kb - Viral Respiratory Infection, [id number] kb Forms: - Medication Reconciliation Form kb - Thank You Letter kb - Antibiotic Education kb - Prescription Opioid Use kb Signatures: Dispatcher [employer] EDMS Marva Licea FNP-C CONCRETE PAVER-Ckb Miranda Hays, RN RN iw Savanah Ledesma MD MD sp3
[2021-02-17 18:36] VITALS: BP 122/91; TEMP 98.8; O2SAT 100
== END 2021-02-17 18:25 | disposition home or self-care (01) ==
LOC: ER 16:30
DX: J06.9 Acute upper respiratory infection, unspecified (principal); Z20.822 Contact with and (suspected) exposure to COVID-19
CPT/HCPCS: 0240U; 87070; 87081; 99281

== ENCOUNTER 2021-05-01 19:07 | Emergency (ER) | payer SELFPAY ==
--- OUTSIDE RECORDS SUMMARY | 2021-05-01 19:08 | XMS REPORT | Continuity of Care Document ---
:1990 Author Organization [facility] t Address [address] [place] [address] Care Team Providers Name Role Phone OJEDA Attending Clinician Unavailable Sonia Cruz Attending Clinician Tammy Adkins Attending Clinician TAMMY FRANCISCO Attending Clinician Unavailable Problems This patient has no known problems. Allergies, Adverse Reactions, Alerts Allergy Allergy Status Severity Reaction(s) Onset Inactive Treating Comm ents Source Name Type Date Date Clinician NO KNOWN Drug Active Univers ALLERGIE Class ity of [facility] Social History Social Habit Start Date Stop Date Quantity Comments Source Exposure to Not sure [facility] SARS-CoV-2 (event) [facility] Sex Assigned At [birth year] [facility] 00:00:00 00:00:00 [facility] Smoking Status Start Date Stop Date Source Unknown if ever smoked [facility] Medications Ordered Filled Start Stop Current Ordering Indication Dosage Frequency Signature Comments Components Source Medication Medication Date Date Medication? Clinician (SIG) Name Name predniSONE No 40mg 40 mg, Univ ers (DELTASONE) 10-09 Oral, ity of tablet 40 09:15: 08:23 [place], [place] 00 :00 dose, [facility] 10/09/20 at Branch 0415, LD ketorolac 2020- No 30mg 30 mg, Unive rs (TORADOL) 10-0920 Intramuscu ity of injection 07:45: 06:49 [place], ONCE, [place] 30 mg 00 :00 1 dose, [facility] 10/09/20 at 0245, LD
Fa culty member approving Restricted medication : Ana Rosa FRANCISCO methocarbam 2021-0 Yes [id number] 500mg Take 1 Univers oL 500 mg 7-20 tablet by ity o f tablet 00:00: mouth 4 (four) Medical times [place] daily. methylPREDN 1-0 Yes [id number] Take by Univers ISolone 7-20 mouth ity of (MEDROL, 00:00: SEE-INSTRU Bob as LUIS,) 4 mg 00 CTIONS. Medica l tablets follow Branch package directions methocarbam 2020-0 Yes [id number] 500mg Take 1 Univers oL 500 mg 7-20 tablet by ity o f tablet 00:00: mouth 4 (four) Medical times [place] daily. methylPREDN 1-0 Yes [id number] Take by Univers ISolone 7-20 mouth ity of (MEDROL, 00:00: SEE-INSTRU Bob as LUIS,) 4 mg 00 CTIONS. Medica l tablets follow Branch package directions methocarbam 2020-0 Yes [id number] 500mg Take 1 Univers oL 500 mg 7-20 tablet by ity o f tablet 00:00: mouth 4 [place] ([facility]) Medical times [place] daily. methylPREDN 2020-0 Yes [id number] Take by Univers ISolone 7-20 mouth ity of (MEDROL, 00:00: SEE-INSTRU Bob as LUIS,) 4 mg 00 CTIONS. Medica l tablets follow Branch package directions Vital Signs Vital Name Observation Time Observation Value Comments Source Systolic blood 2020-10-13 23:35:00 163 mm[Hg] [facility] Diastolic blood 2020-10-13 23:35:00 82 mm[Hg] [facility] Heart rate 2020-10-13 23:35:00 89 /min [facility] Body temperature 2020-10-13 23:35:00 36.67 Kristina [facility] Respiratory rate 2020-10-13 23:35:00 20 /min [facility] Body weight 2020-10-13 23:35:00 81.647 kg [facility] BMI 2020-10-13 23:35:00 25.83 kg/m2 [facility] Oxygen saturation in 2020-10-13 23:35:00 97 /min University of Arterial blood by [facility] Pulse oximetry Branch Systolic blood 2020-10-13 21:40:00 146 mm[Hg] Univer sity of pressure [place] [facility] Diastolic blood 2020-10-13 21:40:00 73 mm[Hg] Unive rsity of pressure [place] [facility] Heart rate 2020-10-13 21:40:00 74 /min [facility] [place] [facility] Respiratory rate 2020-10-13 21:40:00 18 /min Univ [facility] [place] [facility] Body weight 2020-10-13 21:40:00 81.647 kg [facility] [place] [facility] BMI 2020-10-13 21:40:00 25.83 kg/m2 [facility] [place] [facility] Oxygen saturation in 2020-10-13 21:40:00 98 /min University of Arterial blood by [facility] Pulse oximetry Branch Systolic blood 2020-10-09 08:00:00 140 mm[Hg] Univer sity of pressure [place] [facility] Diastolic blood 2020-10-09 08:00:00 92 mm[Hg] Unive rsity of pressure [place] [facility] Heart rate 2020-10-09 08:00:00 79 /min [facility] [place] [facility] Body temperature 2020-10-09 08:00:00 36.78 Kristina [facility] [place] [facility] Respiratory rate 2020-10-09 08:00:00 19 /min [facility] [place] [facility] Oxygen saturation in 2020-10-09 08:00:00 98 /min University of Arterial blood by [facility] Pulse oximetry Branch Body height 2020-10-09 05:18:00 177.8 cm [facility] [place] [facility] Body weight 2020-10-09 05:18:00 81.647 kg [facility] [place] [facility] BMI 2020-10-09 05:18:00 25.83 kg/m2 [facility] [place] [facility] Procedures Procedure Date / Time Performed Performing Clinician Sour e CONSENT/REFUSAL FOR 2020-10-13 23:34:55 Doctor Unassigned, No [facility] [place] DIAGNOSIS AND Name Medical Branch TREATMENT CONSENT/REFUSAL FOR 2020-10-13 21:42:40 Doctor Unassigned, No [facility] [place] DIAGNOSIS AND Name Medical Branch TREATMENT XR LUMBAR SPINE 2 VW 2020-10-09 07:00:45 Ana Rosa Francisco Univers ity of [facility] NOTICE OF PRIVACY 2020-10-09 05:08:11 Doctor Unassigned, No [facility] Branch CONSENT/REFUSAL FOR 2020-10-09 05:07:59 Doctor Unassigned, No [facility] Name Medical Branch TREATMENT Encounters Start End Encounter Admission Attending Care Care Encounter Source Date/Time Date/Time Type Type Clinicians Facility Department ID 2020-10-13 2020-10-14 Emergency [facility] [id number] 068 [place] 00:00:00 00:00:00 SAM [address] 2020-10-13 2020-10-13 Emergency Johnnie Bright TRAUMA [id number] Univers 18:36:00 20:47:00 T CENTER [id number] it [id number] [id number] [place] [address] Branch 2020-10-13 2020-10-13 Emergency X [facility] ERT [id number] Univers 18:20:00 18:20:00 ity of [facility] 2020-10-13 2020-10-13 Emergency Ana Rosa Francisco [facility] [id number] Univers 16:42:00 16:49:00 Tammy Carbal [id number] i ty of [place] [id number] [facility] [id number] [address] 2020-10-13 2020-10-13 Emergency X [place] ERT [id number] Univers 16:34:00 16:34:00 ity of [facility] 2020-10-09 2020-10-09 Emergency Ana Rosa Francisco [id number] Univers 00:26:00 03:30:00 Tammy Cabral [id number] i ty of [place] [id number] [facility] [id number] [address] 2020-10-09 2020-10-09 Emergency X Ana Rosa FRANCISCO [facility] ERT [id number] Univers 00:26:00 00:26:00 ity of [facility] Results Test Description Test Time Test Comments Results Result Sourc e Comments XR LUMBAR SPINE 2020-09-21 No fracture or Univ ersity of 2 VW 0 subluxation. [facility] 07:38:39 4728 Electronically Bran h signed by Federico Bingham at 10/09/2020 2:38 [...]
[2021-05-01] MEDS ORDERED: IBUPROFEN 400 MG TAB ONE (19:47)
--- NOTE | 2021-05-01 20:36 | RAD REPORT ---
EXAM DESCRIPTION: RAD - Chest Single View - 05/01/2021 7:57 pm CLINICAL HISTORY: Cough;Fever COMPARISON: No comparisons FINDINGS: Lines: None. Lungs: No evidence of edema or pneumonia. Pleural: No significant pleural effusions or pneumothorax. Cardiac: The heart size is within normal limits. Bones: No acute fractures. Other: IMPRESSION: No acute cardiopulmonary disease.
[2021-05-01 20:46] LABS: SARS-COV-2 RT PCR NEGATIVE (NEGATIVE)
--- NOTE | 2021-05-01 21:57 | ER ---
Nurse's Notes [facility] Name: Hilario Lezama Age: 31 yrs Sex: Male : 1990 Arrival Date: 05/01/2021 Time: 19:07 Bed 12 Private MD: Diagnosis: Influenza, unspecified Presentation: 05/01 19:34 Chief complaint: Patient states: coughing, body aches and chills since last night. sm5 fever of 104 at home, took nyquil 4 hours ago. Coronavirus screen: Vaccine status: Patient reports being unvaccinated. chills, cough unrelated to allergies. Ebola Screen: No symptoms or risks identified at this time. Initial Sepsis Screen: Does the patient meet any 2 criteria? No. Patient's initial sepsis screen is negative. Does the patient have a suspected source of infection? No. Patient's initial sepsis screen is negative. Risk Assessment: Do you want to hurt yourself or someone else? Patient reports no desire to harm self or others. Onset of symptoms was April 30, 2021. 19:34 Method Of Arrival: Ambulatory [facility] 19:34 Acuity: ANNA 4 sm5 Historical: - Allergies: 19:36 No Known Allergies; sm5 - PMHx: 19:36 Migraines; sm5 - PSHx: 19:36 Tonsillectomy; sm5 - Immunization history:: Client reports having NOT received the Covid vaccine. - Social history:: Smoking status: Patient reports the use of cigarette tobacco products, denies chronic smoking, but will smoke occasionally. Screenin:43 Abuse screen: Denies threats or abuse. Denies injuries from another. Nutritional ab2 screening: No deficits noted. Tuberculosis screening: No symptoms or risk factors identified. Fall Risk None identified. Assessment: 19:42 General: Appears in no apparent distress. comfortable, Behavior is calm, cooperative, ab2 appropriate for age. Pain: Complains of pain in generalized body aches Pain does not radiate. Quality of pain is described as aching. Neuro: Level of Consciousness is awake, alert, obeys commands, Oriented to person, place, time, situation, Appropriate for age [employer] Waste [employer] are equal bilaterally Moves all extremities. Gait is steady, Speech is normal, Facial symmetry appears normal. Cardiovascular: No deficits noted. Reports fatigue, Denies chest pain, shortness of breath, Heart tones S1 S2 present. Respiratory: Airway is patent Respiratory effort is even, unlabored, Respiratory pattern is regular, symmetrical, Breath sounds are clear bilaterally. GI: Reports nausea. : No deficits noted. No signs and/or symptoms were reported regarding the genitourinary system. EENT: No deficits noted. No signs and/or symptoms were reported regarding the EENT system. Derm: No deficits noted. No signs and/or symptoms reported regarding the dermatologic system. Skin is intact, is healthy with good turgor. Musculoskeletal: No deficits noted. No signs and/or symptoms reported regarding the musculoskeletal system. 22:01 Reassessment: Patient appears in no apparent distress at this time. Patient states ab2 symptoms have improved. Vital Signs: 19:34 BP 118 / 74; Pulse 103; Resp 20; Temp 100.9(O); Pulse Ox 100% on R/A; Weight 81.65 kg; 5 Height 5 ft. 10 in. (177.80 cm); Pain 0/10; 20:57 BP 121 / 73; Pulse 97; Resp 16; Pulse Ox 100% on R/A; ab2 21:41 BP 127 / 71; Pulse 96; Resp 16; Pulse Ox 99% on R/A; Pain 0/10; ab2 19:34 Body Mass Index 25.83 (81.65 kg, 177.80 cm) 5 ED Course: 19:07 Patient arrived in ED. am2 19:36 Triage completed. 5 19:36 Arm band placed on left wrist. 5 19:40 Victorino Rudolph is Primary Nurse. ab2 19:42 Jeremi Marcos PA is PHCP. [facility] 19:42 Shoaib Carbone MD is Attending Physician. m 19:44 Patient has correct armband on for positive identification. Bed in low position. Call ab2 light in reach. Side rails up X2. 19:44 No provider procedures requiring assistance completed. ab2 19:44 COVID-19/FLU A+B (Document "Date of Onset" if Symptomatic) Sent. ab2 19:44 COVID-19/FLU A+B Sent. ab2 19:48 Amarjit Osuna MD is Attending Physician. [facility] 19:57 XRAY Chest (1 view) In Process Unspecified. EDMS 22:01 Patient did not have IV access during this emergency room visit. ab2 Administered Medications: 19:46 Drug: Ibuprofen 800 mg Route: PO; ab2 Outcome: 21:57 Discharge ordered by . brad 22:01 Discharged to home ambulatory. ab2 22:01 Condition: good 22:01 Discharge instructions given to patient, Instructed on discharge instructions, follow up and referral plans. Demonstrated understanding of instructions, follow-up care. 22:01 Patient left the ED. ab2 Signatures: Dispatcher [employer] Amarjit Granados MD MD cha Mickail, Joel, PA PA jmm Moreno, Amanda am2 Mazur, Sarah, RN RN sm5 Victorino Rudolph ab2
--- NOTE | 2021-05-01 21:57 | EDPHYS ---
Physician Documentation [facility] Name: Hilario Lezama Age: 31 yrs Sex: Male : 1990 Arrival Date: 05/01/2021 Time: 19:07 Bed 12 Private MD: ANAYELI Physician Amarjit Osuna HPI: 05/01 19:39 This 31 yrs old Male presents to ER via Ambulatory with complaints of Cough, jmm Fever. 19:39 The patient or guardian reports cough. Onset: The symptoms/episode began/occurred jmm gradually, 1 day(s) ago. Modifying factors: The symptoms are alleviated by nothing, the symptoms are aggravated by nothing. Associated signs and symptoms: Pertinent positives: cough. The patient has not experienced similar symptoms in the past. Patient complains of caugh, fever, beginning last night. Complains of chest pain with cough, non productive. . Historical: - Allergies: 19:36 No Known Allergies; sm5 - PMHx: 19:36 Migraines; sm5 - PSHx: 19:36 Tonsillectomy; sm5 - Immunization history:: Client reports having NOT received the Covid vaccine. - Social history:: Smoking status: Patient reports the use of cigarette tobacco products, denies chronic smoking, but will smoke occasionally. ROS: 19:39 Constitutional: Positive for fever. jmm 19:39 Cardiovascular: Positive for chest pain, with cough. 19:39 Respiratory: Positive for cough. 19:39 All other systems are negative. Exam: 19:39 Constitutional: This is a well developed, well nourished patient who is awake, alert, jmm and in no acute distress. Head/Face: atraumatic. Eyes: EOMI, no conjunctival erythema appreciated ENT: Moist Mucus Membranes Neck: Trachea midline, Supple Chest/axilla: Normal chest wall appearance and motion. Cardiovascular: Regular rate and rhythm. No edema appreciated Respiratory: Normal respirations, no respiratory distress appreciated Abdomen/GI: Non distended, soft Back: Normal ROM Skin: General appearance color normal MS/ Extremity: Moves all extremities, no obvious deformities appreciated, no edema noted to the lower extremities Neuro: Awake and alert Psych: Behavior is normal, Mood is normal, Patient is cooperative and pleasant Vital Signs: 19:34 BP 118 / 74; Pulse 103; Resp 20; Temp 100.9(O); Pulse Ox 100% on R/A; Weight 81.65 kg; 5 Height 5 ft. 10 in. (177.80 cm); Pain 0/10; 20:57 BP 121 / 73; Pulse 97; Resp 16; Pulse Ox 100% on R/A; ab2 21:41 BP 127 / 71; Pulse 96; Resp 16; Pulse Ox 99% on R/A; Pain 0/10; ab2 19:34 Body Mass Index 25.83 (81.65 kg, 177.80 cm) [facility] MDM: 19:48 Patient medically screened. [facility] 21:55 Data reviewed: vital signs, nurses notes. Counseling: I had a detailed discussion with [facility] the patient and/or guardian regarding: the historical points, exam findings, and any diagnostic results supporting the discharge/admit diagnosis, the need for outpatient follow up, to return to the emergency department if symptoms worsen or persist or if there are any questions or concerns that arise at home. Counseling: I had a detailed discussion with the patient and/or guardian regarding: lab results. ED course: Patient is alert and non toxic in appearance in the ED. Patient is advised to follow up with pcp and otherwise given strict return precautions. patient understood and agrees with the plan of care. . 05/01 19:43 Order name: COVID-19/FLU A+B (Document "Date of Onset" if Symptomatic) [facility] 05/01 19:39 Order name: XRAY Chest (1 view); Complete Time: 20:37 rn 05/01 19:44 Order name: COVID-19/FLU A+B; Complete Time: 21:13 EDMS Administered Medications: 19:46 Drug: Ibuprofen 800 mg Route: PO; ab2 Disposition: 05/02 08:27 Co-signature as Attending Physician, Amarjit Osuna MD I agree with the assessment and the [facility] plan of care. Chart complete. Disposition Summary: 05/01/21 21:57 Discharge Ordered Location: Home [facility] Condition: Stable [facility] Diagnosis - Influenza, unspecified [facility] Followup: [facility] - With: Private Physician - When: 2 - 3 days - Reason: Recheck today's complaints, Continuance of care, Re-evaluation by your physician Discharge Instructions: - Discharge Summary Sheet braulio - Influenza, Adult jm Forms: - Medication Reconciliation Form [facility] - Thank You Letter jmm - Antibiotic Education jmm - Prescription Opioid Use jm Prescriptions: - Tamiflu 75 mg Oral Capsule - take 1 tablet by ORAL route every 12 hours for 5 days; 10 tablet; Refills: 0, jmm Product Selection Permitted Signatures: Dispatcher [employer] Amarjit Granados, Jeremi Jensen MD, cha, PA PA jmm Mazur, Sarah, RN RN sm5 Victorino Rudolph
[2021-05-01 22:31] VITALS: TEMP 100.9
[2021-05-01 22:33] VITALS: BP 127/71; O2SAT 99
== END 2021-05-01 22:01 | disposition home or self-care (01) ==
LOC: ER 19:07
DX: J11.1 Influenza due to unidentified influenza virus with other respiratory manifestations (principal); Z20.822 Contact with and (suspected) exposure to COVID-19
CPT/HCPCS: 0240U; 71045; 99283

== ENCOUNTER 2021-05-02 04:11 | Emergency (ER) | payer SELFPAY ==
--- OUTSIDE RECORDS SUMMARY | 2021-05-02 04:14 | XMS REPORT | Continuity of Care Document ---
:1990 Author Organization [facility] t Address [address] [place] [address] Care Team Providers Name Role Phone OJEDA Attending Clinician Unavailable Sonia Cruz Attending Clinician Tammy Adkins Attending Clinician TAMMY FRANCISCO Attending Clinician Unavailable Problems This patient has no known problems. Allergies, Adverse Reactions, Alerts Allergy Allergy Status Severity Reaction(s) Onset Inactive Treating Comm ents Source Name Type Date Date Clinician NO KNOWN Drug Active Univers ALLERGIE Class ity of [facility] Social History Social Habit Start Date Stop Date Quantity Comments Source Exposure to Not sure [facility] SARS-CoV-2 (event[facility] Sex Assigned At [birth year] [facility] 00:00:00 00:00:00 [facility] Smoking Status Start Date Stop Date Source Unknown if ever smoked [facility] Medications Ordered Filled Start Stop Current Ordering Indication Dosage Frequency Signature Comments Components Source Medication Medication Date Date Medication? Clinician (SIG) Name Name predniSONE 2020- No 40mg 40 mg, Univ ers (DELTASONE) 10-09 Oral, ity of tablet 40 09:15: 08:23 ONCE, [place] :00 dose, [facility] 10/09/20 at Branch 0415, LD ketorolac 2020- No 30mg 30 mg, Unive rs (TORADOL) 10-09 0720 Intramuscu ity of injection 07:45: 06:49 [place], ONCE, [place] 30 mg 00 :00 1 dose, [facility] 10/09/20 at 0245, LD
Fa culty member approving Restricted medication : Ana Rosa FRANCISCO methocarbam 1-0 Yes [id number] 500mg Take 1 Univers oL 500 mg 7-20 tablet by ity o f tablet 00:00: mouth 4 [place] [facility] Medical times [place] daily. methylPREDN 1-0 Yes [id number] Take by Univers ISolone 7-20 mouth ity of (MEDROL, 00:00: SEE-INSTRU Bob as LUIS,) 4 mg 00 CTIONS. Medica l tablets follow Branch package directions methocarbam 2020-0 Yes [id number] 500mg Take 1 Univers oL 500 mg 7-20 tablet by ity o f tablet 00:00: mouth 4 (four) Medical times [place] daily. methylPREDN 1-0 Yes [id number] Take by Univers ISolone 7-20 mouth ity of (MEDROL, 00:00: SEE-INSTRU Bob as LUIS,) 4 mg 00 CTIONS. Medica l tablets follow Branch package directions methocarbam 2020-0 Yes [id number] 500mg Take 1 Univers oL 500 mg 7-20 tablet by ity o f tablet 00:00: mouth 4 [place] [facility] Medical times [place] daily. methylPREDN 2020-0 Yes [id number] Take by Univers ISolone 7-20 mouth ity of (MEDROL, 00:00: SEE-INSTRU Bob as LUIS,) 4 mg 00 CTIONS. Medica l tablets follow Branch package directions Vital Signs Vital Name Observation Time Observation Value Comments Source Systolic blood 2020-10-13 23:35:00 163 mm[Hg] [facility] Diastolic blood 2020-10-13 23:35:00 82 mm[Hg] [facility] Heart rate 2020-10-13 23:35:00 89 /min [facility] Body temperature 2020-10-13 23:35:00 36.67 Kristina [facility] Respiratory rate 2020-10-13 23:35:00 20 /min [facility] Body weight 2020-10-13 23:35:00 81.647 kg [facility] BMI 2020-10-13 23:35:00 25.83 kg/m2 [facility] Oxygen saturation in 2020-10-13 23:35:00 97 /min University of Arterial blood by [facility] Pulse oximetry Branch Systolic blood 2020-10-13 21:40:00 146 mm[Hg] Univer sity of pressure [facility] Diastolic blood 2020-10-13 21:40:00 73 mm[Hg] Unive rsity of pressure [facility] Heart rate 2020-10-13 21:40:00 74 /min [facility] [place] [facility] Respiratory rate 2020-10-13 21:40:00 18 /min [facility] [place] [facility] Body weight 2020-10-13 21:40:00 81.647 kg [facility] [place] [facility] BMI 2020-10-13 21:40:00 25.83 kg/m2 [facility] [place] [facility] Oxygen saturation in 2020-10-13 21:40:00 98 /min University of Arterial blood by [facility] Pulse oximetry Branch Systolic blood 2020-10-09 08:00:00 140 mm[Hg] Univer sity of [facility] Diastolic blood 2020-10-09 08:00:00 92 mm[Hg] Unive rsity of [facility] Heart rate 2020-10-09 08:00:00 79 /min [facility] [place] [facility] Body temperature 2020-10-09 08:00:00 36.78 Kristina [facility] [place] [facility] Respiratory rate 2020-10-09 08:00:00 19 /min [facility] [place] [facility] Oxygen saturation in 2020-10-09 08:00:00 98 /min University of Arterial blood by [facility] Pulse oximetry Branch Body height 2020-10-09 05:18:00 177.8 cm [facility] [place] [facility] Body weight 2020-10-09 05:18:00 81.647 kg [facility] [place] [facility] BMI 2020-10-09 05:18:00 25.83 kg/m2 [facility] [place] [facility] Procedures Procedure Date / Time Performed Performing Clinician Sour e CONSENT/REFUSAL FOR 2020-10-13 23:34:55 Doctor Unassigned, No [facility] [place] DI[facility] AND Name Medical Branch TREATMENT CONSENT/REFUSAL FOR 2020-10-13 21:42:40 Doctor Unassigned, No [facility] [place] DIAGNOSIS AND Name Medical [facility] TREATMENT XR LUMBAR SPINE 2 VW 2020-10-09 07:00:45 Ana Rosa Francisco Univers ity of [facility] NOTICE OF PRIVACY 2020-10-09 05:08:11 Doctor Unassigned, No Univ [facility] PRACTICES Name Medical Branch CONSENT/REFUSAL FOR 2020-10-09 05:07:59 [facility]igned, [facility] TREATMENT Encounters Start End Encounter Admission Attending Care Care Encounter Source Date/Time Date/Time Type Type Clinicians Facility Department ID 2020-10-13 2020-10-14 Emergency CRAB ORCHARD, [facility] [id number] [place] 00:00:00 00:00:[address] [facility] [address] 2020-10-13 2020-10-13 Emergency Johnnie Bright TRAUMA [id number] Univers 18:36:00 20:47:00 T CENTER [id number] [id number] [id number] [id number] Branch 2020-10-13 2020-10-13 Emergency X [facility] ERT [id number] Univers 18:20:00 18:20:00 ity of [facility] 2020-10-13 2020-10-13 Emergency Ana Rosa Francisco [facility] [id number] Univers 16:42:00 16:49:00 Tammy Cabral [id number] i ty [id number] [id number] [address] 2020-10-13 2020-10-13 Emergency X [facility] ERT [id number] Univers 16:34:00 16:34:00 ity of [facility] 2020-10-09 2020-10-09 Emergency Ana Rosa Francisco [id number] Univers 00:26:00 03:30:00 Tammy Cabral [id number] i ty [id number] [id number] [address] 2020-10-09 2020-10-09 Emergency X Ana Rosa FRANCISCO [facility] ERT [id number] Univers 00:26:00 [facility]26[facility] Test Description Test Time Test Comments Results Result Sourc e Comments XR LUMBAR SPINE 2020-09-21 No fracture or Univ ersity of 2 VW 0 subluxation. [facility] 07:38:39 4728 Electronically [facility] signed by Federico Bingham at 10/09/2020 [...]
[2021-05-02] MEDS ORDERED: ACETAMINOPHEN 500 MG TAB ONE (04:30)
--- NOTE | 2021-05-02 04:55 | ER ---
Nurse's Notes [facility] Name: Hilario Lezama Age: 31 yrs Sex: Male : 1990 Arrival Date: 05/02/2021 Time: 04:14 Bed 20 Private MD: Diagnosis: Influenza due to identified novel influenza A virus with other respiratory manifestations Presentation: 05/02 04:20 Chief complaint: Patient states: seen here earlier tonjazzy, dx with flu. came back [facility] because he states his fever is back but has not taken ibuprofen or tyenol. Coronavirus screen: Vaccine status: Patient reports being unvaccinated. Ebola Screen: No symptoms or risks identified at this time. Initial Sepsis Screen: Does the patient meet any 2 criteria? No. Patient's initial sepsis screen is negative. Does the patient have a suspected source of infection? No. Patient's initial sepsis screen is negative. Risk Assessment: Do you want to hurt yourself or someone else? Patient reports no desire to harm self or others. Onset of symptoms was May 02, 2021. 04:20 Method Of Arrival: Ambulatory [facility] 04:20 Acuity: ANNA 4 [facility] Triage Assessment: 04:21 General: Appears in no apparent distress. Behavior is cooperative. Pain: Denies pain. 5 Neuro: No deficits noted. Level of Consciousness is awake, alert, obeys commands, Oriented to person, place, time, situation. Cardiovascular: No deficits noted. Capillary refill < 3 seconds Patient's skin is warm and dry. Respiratory: Reports cough that is Airway is patent Trachea midline Respiratory effort is even, unlabored, Onset: The symptoms/episode began/occurred yesterday, the patient has mild shortness of breath. Historical: - Allergies: 04:21 No Known Allergies; sm5 - PMHx: 04:21 Migraines; sm5 - PSHx: 04:21 Tonsillectomy; 5 - Immunization history:: Client reports having NOT received the Covid vaccine. - Social history:: Smoking status: Patient reports the use of cigarette tobacco products, denies chronic smoking, but will smoke occasionally. - Family history:: not pertinent. - Hospitalizations: : No recent hospitalization is reported. Screenin:26 Abuse screen: Denies threats or abuse. Nutritional screening: No deficits noted. vc1 Tuberculosis screening: No symptoms or risk factors identified. Fall Risk None identified. Assessment: 04:26 General: Appears in no apparent distress. ill, Behavior is calm, cooperative, vc1 appropriate for age. Cardiovascular: Rhythm is sinus tachycardia. Respiratory: Reports shortness of breath Airway is patent Respiratory effort is even, unlabored, Respiratory pattern is regular, symmetrical. Vital Signs: 04:20 BP 116 / 92; Pulse 110; Resp 19; Temp 100(O); Pulse Ox 97% on R/A; sm5 ED Course: 04:14 Patient arrived in ED. ja2 04:17 Shoaib Carbone MD is Attending Physician. rn 04:21 Triage completed. sm5 04:23 Arm band placed on right wrist. sm5 04:27 Patient has correct armband on for positive identification. Pulse ox on. NIBP on. vc1 04:57 Suzanne Ayala, RN is Primary Nurse. vc1 04:57 No provider procedures requiring assistance completed. Patient did not have IV access vc1 during this emergency room visit. Administered Medications: 04:27 CANCELLED (Duplicate Order): Tylenol 650 mg PO once rn 04:29 Drug: Tylenol 1000 mg Route: PO; vc1 04:58 Follow up: Response: No adverse reaction vc1 Outcome: 04:54 Discharge ordered by . rn 04:57 Discharged to home ambulatory. vc1 04:57 Condition: good 04:57 Discharge instructions given to patient, Instructed on discharge instructions, follow up and referral plans. Demonstrated understanding of instructions, follow-up care, medications. 04:58 Patient left the ED. vc1 Signatures: Shoaib Carbone MD MD rn Alexander, Jessica ja Josefina Hartley RN RN Suzanne Goins RN RN vc1 Corrections: (The following items were deleted from the chart) 04:23 04:20 Temp 100F Oral; sm5 sm5
--- NOTE | 2021-05-02 04:55 | EDPHYS ---
Physician Documentation [facility] Name: Hilario Lezama Age: 31 yrs Sex: Male : 1990 Arrival Date: 05/02/2021 Time: 04:14 Bed 20 Private MD: ED Physician Shoaib Carbone HPI: 05/02 04:36 This 31 yrs old Male presents to ER via Ambulatory with complaints of cough, rn fever. 04:36 The patient reports fever, that was measured at 102 degrees Fahrenheit. Onset: The rn symptoms/episode began/occurred yesterday. Modifying factors: there are no obvious modifying factors. Associated signs and symptoms: Pertinent positives: cough, myalgias, Pertinent negatives: abdominal pain, altered mental status. Severity of symptoms: At their worst the symptoms were moderate in the emergency department the symptoms are unchanged. The patient has not experienced similar symptoms in the past. The patient has been recently seen at the [facility] Emergency Department. Seen here and just discharged 6 hours ago with diagnosis of influenza, returns because fever returned and doesn't have medicine for fever. Had neg CXR earlier.. Historical: - Allergies: 04:21 No Known Allergies; sm5 - PMHx: 04:21 Migraines; sm5 - PSHx: 04:21 Tonsillectomy; sm5 - Immunization history:: Client reports having NOT received the Covid vaccine. - Social history:: Smoking status: Patient reports the use of cigarette tobacco products, denies chronic smoking, but will smoke occasionally. - Family history:: not pertinent. - Hospitalizations: : No recent hospitalization is reported. ROS: 04:36 Constitutional: + fever Eyes: Negative for injury, pain, redness, and discharge, journalism internship: Negative for chest pain, palpitations, and edema, Respiratory: Negative for wheezing, and pleuritic chest pain Abdomen/GI: Negative for abdominal pain, nausea, vomiting, diarrhea, and constipation, MS/Extremity: Negative for injury and deformity, Skin: Negative for injury, rash, and discoloration, Neuro: Negative for headache, weakness, numbness, tingling, and seizure. Exam: 04:43 Constitutional: This is a well developed, well nourished patient who is awake, alert, rn and in no acute distress. Ambulatory to room without difficulty or assistance. Head/Face: Normocephalic, atraumatic. Eyes: Periorbital areas with no swelling, redness, or edema. Cardiovascular: Regular rate and rhythm. No pulse deficits. Respiratory: Speaking full sentences, unlabored. No increased work of breathing, no retractions or nasal flaring. Skin: Warm, dry MS/ Extremity: Pulses equal, no cyanosis. Neuro: Awake and alert, GCS 15 Vital Signs: 04:20 BP 116 / 92; Pulse 110; Resp 19; Temp 100(O); Pulse Ox 97% on R/A; sm5 MDM: 04:17 Patient medically screened. rn 04:43 Differential diagnosis: viral Infection, URI. Data reviewed: vital signs, nurses notes, rn old medical records, and as a result, I will discharge patient. Counseling: I had a detailed discussion with the patient and/or guardian regarding: the historical points, exam findings, and any diagnostic results supporting the discharge/admit diagnosis, lab results, the need for outpatient follow up, to return to the emergency department if symptoms worsen or persist or if there are any questions or concerns that arise at home. Special discussion: I discussed with the patient/guardian in detail that at this point there is no indication for admission to the hospital. It is understood, however, that if the symptoms persist or worsen the patient needs to return immediately for re-evaluation. Administered Medications: 04:27 CANCELLED (Duplicate Order): Tylenol 650 mg PO once rn 04:29 Drug: Tylenol 1000 mg Route: PO; vc1 04:58 Follow up: Response: No adverse reaction vc1 Disposition Summary: 05/02/21 04:54 Discharge Ordered Location: Home rn Problem: new rn Symptoms: have improved rn Condition: Stable rn Diagnosis - Influenza due to identified novel influenza A virus with other respiratory rn manifestations Followup: rn - With: Private Physician - When: As needed - Reason: Recheck today's complaints, Re-evaluation by your physician Discharge Instructions: - Discharge Summary Sheet rn - Influenza, Adult rn Forms: - Medication Reconciliation Form rn - Thank You Letter rn - Antibiotic transportation logistics internship - Prescription Opioid Use rn Signatures: Shoaib Carbone MD MD rn Mazur, Sarah, RN RN sm5 Suzanne Ayala RN RN vc1 Corrections: (The following items were deleted from the chart) 04:27 04:26 Tylenol 650 mg PO once ordered. rn rn 04:49 04:36 Constitutional: + fever rn rn
[2021-05-02 05:03] VITALS: BP 116/92; TEMP 100; O2SAT 97
== END 2021-05-02 04:58 | disposition home or self-care (01) ==
LOC: ER 04:11
DX: J10.1 Influenza due to other identified influenza virus with other respiratory manifestations (principal); F17.210 Nicotine dependence, cigarettes, uncomplicated
CPT/HCPCS: 99284

== ENCOUNTER 2022-05-06 20:31 | Emergency (ER) | payer SELFPAY ==
--- OUTSIDE RECORDS SUMMARY | 2022-05-06 20:33 | XMS REPORT | Continuity of Care Document ---
:1990 Author Organization [facility] t Address [address] [place] [address] Care Team Providers Name Role Phone Asked, No Pcp Primary Care Physician Unavailable SAM OJEDA Attending Clinician Unavailable Johnnie Cruz Attending Clinician Ana Rosa Adkins Attending Clinician Ana Rosa FRANCISCO Attending Clinician Unavailable Problems This patient has no known problems. Allergies, Adverse Reactions, Alerts Allergy Allergy Status Severity Reaction(s) Onset Inactive Treating Comm ents Source Name Type Date Date Clinician NO KNOWN Drug Active [facility] ALLERGIE Class [facility] Social History Social Habit Start Date Stop Date Quantity Comments Source Exposure to Not sure [facility] SARS-CoV-2 (event) [facility] Sex Assigned At [birth year] [facility] 00:00:00 00:00:00 Smoking Status Start Date Stop Date Source Tobacco smoking consumption unknown [facility] Medications Ordered Filled Start Stop Current Ordering Indication Dosage Frequency Signature Comments Components Source Medication Medication Date Date Medication? Clinician (SIG) Name Name predniSONE 2020- 202- No 40mg 40 mg, Univ ers (DELTASONE) 10-09-20 Oral, ity of tablet 40 09:15: 08:23 [place]CE, [place] :[place] dose, Tue Medical 10/09/20 at Branch 0415, LD ketorolac 2020-2020- No 30mg 30 mg, Unive rs (TORADOL) 10-09 07-20 Intramuscu ity of injection 07:45: 06:49 lar, ONCE, [place] 30 mg 00 :00 1 dose, Medical e Branch 10/09/20 at 0245, LD
[facility] approving Restricted medication : Ana Rosa FRANCISCO TAMMY methocarbam 2020-0 Yes [id number] 500mg Take 1 Univers oL 500 mg 7-20 tablet by ity o f tablet 00:00: mouth 4 (four) Medical times Branch daily. methylPREDN 202-0 Yes [id number] Take by Univers ISolone 7-20 mouth ity of (MEDROL, 00:00: SEE-INSTRU Bob as LUIS,) 4 mg 00 CTIONS. Medica l tablets follow Branch package directions methocarbam 2020-0 Yes [id number] 500mg Take 1 Univers oL 500 mg 7-20 tablet by ity o f tablet 00:00: mouth 4 (four) Medical times Branch daily. methylPREDN 2020-0 Yes [id number] Take by Univers ISolone 7-20 mouth ity of (MEDROL, 00:00: SEE-INSTRU Bob as LUIS,) 4 mg 00 CTIONS. Medica l tablets follow Branch package directions methocarbam 2020-0 Yes [id number] 500mg Take 1 Univers oL 500 mg 7-20 tablet by ity o f tablet 00:00: mouth 4 (four) Medical times Branch daily. methylPREDN 2020-0 Yes [id number] Take by Univers ISolone 7-20 mouth ity of (MEDROL, 00:00: SEE-INSTRU Bob as LUIS,) 4 mg 00 CTIONS. Medica l tablets follow Branch package directions Vital Signs Vital Name Observation Time Observation Value Comments Source Systolic blood 2020-10-13 23:35:00 163 mm[Hg] [facility] Diastolic blood 2020-10-13 23:35:00 82 mm[Hg] [facility] Heart rate 2020-10-13 23:35:00 89 /min [facility] Body temperature 2020-10-13 23:35:00 36.67 Kristina [facility] Respiratory rate 2020-10-13 23:35:00 20 /min [facility] Body weight 2020-10-13 23:35:00 81.647 kg [facility] BMI 2020-10-13 23:35:00 25.83 kg/m2 [facility] Oxygen saturation in 2020-10-13 23:35:00 97 /min [facility] of Arterial blood by [facility] Pulse oximetry Branch Systolic blood 2020-10-13 21:40:00 146 mm[Hg] [facility] [place] [facility] Diastolic blood 2020-10-13 21:40:00 73 mm[Hg] [facility] [place] [facility] Heart rate 2020-10-13 21:40:00 74 /min [facility] Respiratory rate 2020-10-13 21:40:00 18 /min [facility] Body weight 2020-10-13 21:40:00 81.647 kg [facility] BMI 2020-10-13 21:40:00 25.83 kg/m2 [facility] Oxygen saturation in 2020-10-13 21:40:00 98 /min [facility] Arterial blood by [facility] Pulse oximetry Branch Systolic blood 2020-10-09 08:00:00 140 mm[Hg] [facility] [place] [facility] Diastolic blood 2020-10-09 08:00:00 92 mm[Hg] [facility] [place] [facility] Heart rate 2020-10-09 08:00:00 79 /min [facility] Body temperature 2020-10-09 08:00:00 36.78 Kristina [facility] [place] [facility] Respiratory rate 2020-10-09 08:00:00 19 /min [facility] [place] [facility] Oxygen saturation in 2020-10-09 08:00:00 98 /min [facility] Arterial blood by [facility] Pulse oximetry Branch Body height 2020-10-09 05:18:00 177.8 cm [facility] Body weight 2020-10-09 05:18:00 81.647 kg [facility] BMI 2020-10-09 05:18:00 25.83 kg/m2 [facility] [place] [facility] Procedures Procedure Date / Time Performed Performing Clinician [facility] e CONSENT/REFUSAL FOR 2020-10-13 23:34:55 Doctor Unassigned, No Un [facility] DIAGNOSIS AND Name Medical Branch TREATMENT CONSENT/REFUSAL FOR 2020-10-13 21:42:40 Doctor Unassigned, No Un [facility] [place] DIAGNOSIS AND Name Medical [facility] TREATMENT XR LUMBAR SPINE 2 VW 2020-10-09 07:00:45 Ana Rosa Francisco [facility] NOTICE OF PRIVACY 2020-10-09 05:08:11 Doctor Unassigned, No [facility] [place] [facility] Name Medical Branch CONSENT/REFUSAL FOR 2020-10-09 05:07:59 Doctor Unassigned, No [facility] [place] DIAGNOSIS AND Name Medical Branch TREATMENT Plan of Care Planned Activity Planned Date Details Comments Source Future Scheduled 2022-03-03 [facility] 22:36:16 (#1) [code = COVID-19 VACCINE (#1)] Future Scheduled 2022-03-03 [facility] 22:36:16 screening (procedure) [code = 119408951] Future Scheduled 2022-03-03 INFLUENZA VACCINE [facility] 22:36:16 [code = INFLUENZA VACCINE] Encounters Start End Encounter Admission Attending Care Care Encounter Source Date/Time Date/Time Type Type Clinicians Facility Department ID 2020-10-13 2020-10-14 Emergency [facility] [id number] [place] 00:00:00 00:00:[address] SAM [address] 2020-10-13 2020-10-13 Emergency Francisco Brightin TRAUMA [id number] Univers 18:36:00 20:47:00 T [place] [id number] it y of [id number] [facility] [id number] [facility] 014 Branch 2020-10-13 2020-10-13 Emergency X [facility] ERT [id number] Univers 18:20:00 18:20:00 ity of [facility] 2020-10-13 2020-10-13 Emergency Ana Rosa Francisco [facility] [id number] Univers 16:42:00 16:49:00 Tammy Cabral [id number] i [facility] [id number] [place] [id number] [address] 2020-10-13 2020-10-13 Emergency X [facility] ERT [id number] Univers 16:34:00 16:34:00 ity [facility] 2020-10-09 2020-10-09 Emergency Ana Rosa Francisco [facility] [id number] Univers 00:26:00 03:30:00 Tammy Cabral [id number] i ty [facility] [id number] [facility] [id number] [address] 2020-10-09 2020-10-09 Emergency X NOLAN, K [facility] ERT [id number] Univers 00:26:00 00:26:00 ity [facility] Results Test Description Test Time Test Comments Results Result Sourc e Comments XR LUMBAR SPINE 2020-09-21 No fracture or Univ ersity of [address] VW [address] [facility] 07:38:39 4728 Electronically [facility] signed by Federico Bingham at 10/09/2020 2:38 AM ORDERING PHYSICIAN: Ana Rosa FRANCISCO HISTORY: Lumbar pain TECHNIQUE: 3 views of the lumbar spine COMPARISON: None available. FINDINGS: There is normal vertebral body height and alignment. Disc space height is preserved. The sacroiliac joints are normal. [facility], Radiant Results Inft User - 10/09/2020 2:39 AM CDT ORDERING PHYSICIAN: Ana Rosa OLSENISTORY: Lumbar painTECHNIQUE: 3 views of the lumbar spineCOMPARISON: None available.FINDINGS: There is normal vertebral body height and alignment. Disc space height is preserved.The sacroiliac joints are normal.IMPRESSIONNo fracture or subluxation. [id number]
[2022-05-06] MEDS ORDERED: IBUPROFEN 400 MG TAB ONE (22:25)
[2022-05-06] MEDS ORDERED: ACETAMINOPHEN 325 MG TABLET ONE (22:25)
--- NOTE | 2022-05-06 23:48 | ER ---
Nurse's Notes [facility] Name: Hilario Lezama Age: 32 yrs Sex: Male : 1990 Arrival Date: 05/06/2022 Time: 20:34 Bed 9 Private MD: Diagnosis: Pain in right wrist-from fall Presentation: 05/06 21:27 Chief complaint: Patient states: right wrist pain and swelling fell and bent right kl wrist back. Coronavirus screen: Vaccine status: Patient reports being unvaccinated. Ebola Screen: Patient negative for fever greater than or equal to 101.5 degrees Fahrenheit, and additional compatible Ebola Virus Disease symptoms. Initial Sepsis Screen: Does the patient meet any 2 criteria? No. Patient's initial sepsis screen is negative. Does the patient have a suspected source of infection? No. Patient's initial sepsis screen is negative. Risk Assessment: Do you want to hurt yourself or someone else? Patient reports no desire to harm self or others. 21:27 Method Of Arrival: Ambulatory 21:27 Acuity: ANNA 4 kl Triage Assessment: 21:28 General: Appears in no apparent distress. Behavior is calm, cooperative. Pain: Complains of pain in right wrist. 05/07 00:51 Injury Description: Bruise. kl Historical: - Allergies: 05/06 21:28 No Known Allergies; kl - PMHx: 21:28 Migraines; kl - PSHx: 21:28 Tonsillectomy; kl - Immunization history:: Adult Immunizations not up to date. - Social history:: Smoking status: . Screenin:17 [facility] ED Fall Risk Assessment (Adult) History of falling in the last 3 months, mb9 including since admission Yes- single mechanical fall (1 pt) Confusion or Disorientation No (0 pts) Intoxicated or Sedated No (0 pts) Impaired Gait No (0 pts) Mobility Assist Device Used No (0 pt) Altered Elimination No (0 pt) Score/Fall Risk Level 0 - 2 = Low Risk Oriented to surroundings, Maintained a safe environment, Educated pt \T\ family on fall prevention, incl call for assistance when getting out of bed. Abuse screen: Denies threats or abuse. Nutritional screening: No deficits noted. Tuberculosis screening: No symptoms or risk factors identified. Assessment: 22:10 Reassessment: pt brought back to ER room. mb9 22:16 General: Appears comfortable, Behavior is calm, cooperative, appropriate for age. Pain: mb9 Complains of pain in right wrist. Neuro: Level of Consciousness is awake, alert, obeys commands, Oriented to person, place, time, situation, Appropriate for age. Cardiovascular: Capillary refill < 3 seconds is brisk Patient's skin is warm and dry. Respiratory: Airway is patent Respiratory effort is even, unlabored, Respiratory pattern is regular, symmetrical. Derm: Skin is pink, warm \T\ dry. Musculoskeletal: Range of motion: limited in right wrist Swelling present in right wrist. 23:30 Reassessment: No changes from previously documented assessment. Patient and/or family mb9 updated on plan of care and expected duration. Pain level reassessed. Patient is alert, oriented x 3, equal unlabored respirations, skin warm/dry/pink. Patient states feeling better. Patient states symptoms have improved. Vital Signs: 21:27 BP 125 / 82; Pulse 63; Resp 18; Temp 97(TE); Pulse Ox 100% on R/A; Weight 83.91 kg (R); kl Height 5 ft. 10 in. (177.80 cm); Pain 8/10; 22:17 BP 143 / 80; Pulse 62; Resp 16; Pulse Ox 100% on R/A; Pain 8/10; mb9 23:42 BP 148 / 80; Pulse 66; Resp 16; Pulse Ox 100% ; Pain 0/10; mb9 21:27 Body Mass Index 26.54 (83.91 kg, 177.80 cm) ED Course: 20:34 Patient arrived in ED. jj6 20:35 Amarjit Betancourt PA is PHCP. cp 20:35 Amarjit Osuna MD is Attending Physician. cp 21:28 Triage completed. kl 22:16 Arm band placed on. mb9 22:18 Placed in gown. Bed in low position. Call light in reach. Side rails up X 1. Client mb9 placed on continuous cardiac and pulse oximetry monitoring. NIBP monitoring applied. 22:18 No provider procedures requiring assistance completed. Patient did not have IV access mb9 during this emergency room visit. 22:19 Aziza Li RN is Primary Nurse. mb9 23:46 Maury Mayfield MD is Referral Physician. cp Administered Medications: 22:27 Drug: Tylenol 650 mg Route: PO; mb9 23:49 Follow up: Response: No adverse reaction mb9 22:27 Drug: Motrin (ibuprofen) 800 mg Route: PO; mb9 23:48 Follow up: Response: No adverse reaction mb9 Medication: 22:18 VIS not applicable for this client. mb9 Outcome: 23:47 Discharge ordered by MD. glover 05/07 00:50 Discharged to home ambulatory. kl Condition: stable Discharge instructions given to patient, Instructed on discharge instructions, follow up and referral plans. 00:52 Patient left the ED. kl Signatures: Patricia Osborn, RN RN Amarjit Sethi PA PA cp Jeffries, Jennifer jj6 Breneman, Mary Beth RN RN mb9
--- NOTE | 2022-05-06 23:48 | EDPHYS ---
Physician Documentation [facility] Name: Hilario Lezama Age: 32 yrs Sex: Male : 1990 Arrival Date: 05/06/2022 Time: 20:34 Bed 9 Private MD: ED Physician Amarjit Osuna HPI: 05/06 21:45 This 32 yrs old Male presents to ER via Ambulatory with complaints of Wrist cp Injury. 21:45 The patient or guardian reports injury, pain, tenderness to dorsum of right wrist. cp Context: resulted from a fall, on an outstretched hand. 21:45 Onset: The symptoms/episode began/occurred yesterday. cp Historical: - Allergies: 21:28 No Known Allergies; kl - PMHx: 21:28 Migraines; kl - PSHx: 21:28 Tonsillectomy; kl - Immunization history:: Adult Immunizations not up to date. - Social history:: Smoking status: . ROS: 21:50 Constitutional: Negative for body aches, chills, fever, poor PO intake. cp 21:50 Eyes: Negative for injury, pain, redness, and discharge. cp 21:50 Neck: Negative for pain with movement, pain at rest, stiffness. 21:50 Respiratory: Negative for cough, shortness of breath, wheezing. 21:50 Abdomen/GI: Negative for abdominal pain, nausea, vomiting, and diarrhea. 21:50 Back: Negative for pain at rest, pain with movement. 21:50 MS/extremity: Positive for pain, swelling, tenderness, of the right wrist, Negative for decreased range of motion, deformity. 21:50 Neuro: Negative for numbness, weakness. 21:50 All other systems are negative. Exam: 21:55 Constitutional: The patient appears in no acute distress, alert, awake, non-toxic, well cp developed, well nourished. 21:55 Head/Face: Normocephalic, atraumatic. cp 21:55 Eyes: Periorbital structures: appear normal, Conjunctiva: normal, no exudate, no injection, Lids and lashes: appear normal, bilaterally. 21:55 ENT: External ear(s): are unremarkable, Nose: is normal, Mouth: Lips: moist, Oral mucosa: moist, Posterior pharynx: is normal, airway is patent, no erythema, no exudate. 21:55 Neck: ROM/movement: is normal, is supple, without pain, no range of motions limitations. 21:55 Chest/axilla: Inspection: normal. 21:55 Cardiovascular: Rate: normal, Rhythm: regular, Pulses: Pulses are 2+ in right radial artery. 21:55 Respiratory: the patient does not display signs of respiratory distress, Respirations: normal, no use of accessory muscles, no retractions, labored breathing, is not present. 21:55 Abdomen/GI: Exam negative for discomfort, distension, guarding, Inspection: abdomen appears normal. 21:55 Musculoskeletal/extremity: Extremities: noted in the right wrist: pain, tenderness, mild swelling noted dorsal side right wrist. Pain with extension of wrist. no ROM limitation. Right wrist and hand neurovascular intact. Vital Signs: 21:27 BP 125 / 82; Pulse 63; Resp 18; Temp 97(TE); Pulse Ox 100% on R/A; Weight 83.91 kg (R); Height 5 ft. 10 in. (177.80 cm); Pain 8/10; 22:17 BP 143 / 80; Pulse 62; Resp 16; Pulse Ox 100% on R/A; Pain 8/10; mb9 23:42 BP 148 / 80; Pulse 66; Resp 16; Pulse Ox 100% ; Pain 0/10; mb9 21:27 Body Mass Index 26.54 (83.91 kg, 177.80 cm) Procedures: 05/07 00:00 Splinting: Splint applied to right wrist using wrist splint, applied by nurse. Examined cp by me, post splint application: neurovascular intact, Patient tolerated well. MDM: 05/06 21:33 Patient medically screened. cp 22:00 Differential diagnosis: dislocation, open fracture, closed fracture, contusion, cp tendonitis. 23:15 Data reviewed: vital signs, nurses notes, radiologic studies, plain films. Independent cp interpretation of the following test(s) in the Emergency Department X-Ray: My interpretation is right wrist negative for fracture. 23:45 Response to treatment: the patient's symptoms have markedly improved after treatment, cp and as a result, I will discharge patient. 05/06 21:29 Order name: Wrist Right 3 View XRAY 05/06 23:15 Order name: Wrist Splint; Complete Time: 23:42 cp Administered Medications: 22:27 Drug: Tylenol 650 mg Route: PO; mb9 23:49 Follow up: Response: No adverse reaction mb9 22:27 Drug: Motrin (ibuprofen) 800 mg Route: PO; mb9 23:48 Follow up: Response: No adverse reaction mb9 Disposition Summary: 05/06/22 23:47 Discharge Ordered Location: Home cp Problem: new cp Symptoms: have improved cp Condition: Stable cp Diagnosis - Pain in right wrist - from fall cp Followup: cp - With: Maury Mayfield MD - When: 1 week - Reason: pain continues Discharge Instructions: - Discharge Summary Sheet cp - Wrist Pain, Adult cp Forms: - Medication Reconciliation Form cp - Thank You Letter cp - Antibiotic Education cp - Prescription Opioid Use cp - School release form mb9 - Work release form mb9 Prescriptions: - Ibuprofen 800 mg Oral Tablet - take 1 tablet by ORAL route every 8 hours As needed take with food; 30 tablet; cp Refills: 0, Product Selection Permitted Signatures: Dispatcher [employer] EDPatricia Hager RN RN kl Page, Corey, PA PA cp Breneman, Mary Beth, RN RN mb9 Corrections: (The following items were deleted from the chart) 05/07 23:55 05/06 23:15 Response to treatment: the patient's symptoms have markedly improved after cp treatment, and as a result, I will discharge patient, cp
[2022-05-07 00:56] VITALS: TEMP 97; O2SAT 100
[2022-05-07 00:59] VITALS: BP 148/80
--- NOTE | 2022-05-07 09:53 | RAD REPORT ---
EXAM DESCRIPTION: RAD - Wrist Right 3 View - 05/06/2022 11:02 pm CLINICAL HISTORY: Swelling Wrist Right 3 View COMPARISON: None. FINDINGS: 3 views of the right wrist. No acute fracture or dislocation. Normal osseous mineralizatio n. IMPRESSION: 1. No acute fracture or dislocation. Electronically signed by: Roberto Burk 05/06/2022 11:10 PM MANAGER BACKGROUND Due to temporary technical issues with the PACS/Fluency reporting system, reports are being signed by the in house radiologists without review as a courtesy to insure prompt reporting. The interpreting radiologist is fully responsible for the content of the report.
== END 2022-05-07 00:52 | disposition home or self-care (01) ==
LOC: ER 20:31
DX: M25.531 Pain in right wrist (principal)

== ENCOUNTER 2023-02-22 17:05 | Emergency (ER) | payer SELFPAY ==
--- OUTSIDE RECORDS SUMMARY | 2023-02-22 17:20 | XMS REPORT | Continuity of Care Document ---
:1990 Author Organization [facility] t Address [address] [facility] [address] [place] [address] Care Team Providers Name Role Phone Asked, No Pcp Primary Care Physician Unavailable KALIA HANNA Attending Clinician Unavailable Kalia Hanna MD Attending Clinician SAM OJEDA Attending Clinician Unavailable Johnnie Cruz Attending Clinician Ana Rosa Adkins Attending Clinician Ana Rosa FRANCISCO Attending Clinician Unavailable Problems This patient has no known problems. Allergies, Adverse Reactions, Alerts Allergy Allergy Status Severity Reaction(s) Onset Inactive Treating Comm ents Source Name Type Date Date Clinician NO KNOWN Drug Active Univers ALLERGIE Class ity of [facility] [place] Social History Social Habit Start Date Stop Date Quantity Comments Source Exposure to Not sure [facility] SARS-CoV-2 (event) Medica l Branch Sexual orientation [facility] History of Social 2020-10-14 2020-10-14 [facility] function 00:00:00 00:00:00 Sex Ass[birth year] [facility] 00:00:00 00:00:00 Smoking Status Start Date Stop Date Source Tobacco smoking consumption unknown [facility] Medications Ordered Filled Start Stop Current Ordering Indication Dosage Frequency Signature Comments Components Source Medication Medication Date Date Medication? Clinician (SIG) Name Name predniSONE 2020- No 40mg 40 mg, Univ ers (DELTASONE) 7-20 07-20 Oral, ity of tablet 40 09:15: 08:23 ONCE, [place] :00 dose, [facility] 10/09/20 at Branch 0415, LD ketorolac 2020- No [facility] 10-09 Intramuscu ity of injection 07:45: 06:49 [place], ONCE, [place] 30 mg 00 :00 1 dose, [facility] 10/09/20 at 0245, LD
Fa culty member approving Restricted medication : Ana Rosa FRANCISCO methocarbam 2020-0 Yes [id number] 500mg Take 1 Univers oL 500 mg 7-20 tablet by ity o f tablet 00:00: mouth () Medical times Branch daily. methylPREDN 2020-0 Yes [id number] Take by Univers ISolone 7-20 mouth ity of (MEDROL, 00:00: SEE-INSTRU Bob as LUIS,) 4 mg 00 CTIONS. Medica l tablets follow Branch package directions methocarbam 2020-0 Yes [id number] 500mg Take 1 Univers oL 500 mg 7-20 tablet by ity o f tablet 00:00: mouth () Medical times Branch daily. methylPREDN 2020-0 Yes [id number] Take by Univers ISolone 7-20 mouth ity of (MEDROL, 00:00: SEE-INSTRU Bob as LUIS,) 4 mg 00 CTIONS. Medica l tablets follow Branch package directions methocarbam 2020-0 Yes [id number] 500mg Take 1 Univers oL 500 mg 7-20 tablet by ity o f tablet 00:00: mouth 4 () Medical times Branch daily. methylPREDN 2021-0 Yes [id number] Take by Univers ISolone 7-20 mouth ity of (MEDROL, 00:00: SEE-INSTRU Bob as LUIS,) 4 mg 00 CTIONS. Medica l tablets follow Branch package directions methocarbam 2020-0 Yes [id number] 500mg Take 1 Univers oL 500 mg 7-20 tablet by ity o f tablet 00:00: mouth 4 (four) Medical times Branch daily. methylPREDN 2021-0 Yes [id number] Take by Univers ISolone 7-20 mouth ity of (MEDROL, 00:00: SEE-INSTRU Bob as LUIS,) 4 mg 00 CTIONS. Medica l tablets follow Branch package directions Vital Signs Vital Name Observation Time Observation Value Comments Source Systolic blood 2022-09-24 05:32:00 156 mm[Hg] Univer sity of pressure [facility] Diastolic blood 2022-09-24 05:32:00 92 mm[Hg] Unive rsity of [facility] Heart rate 2022-09-24 05:32:00 69 /min Universi ty [facility] Body temperature 2022-09-24 05:32:00 36.72 [facility] rate 2022-09-24 05:32:00 16 /min [facility] Body height 2022-09-24 05:32:00 177.8 cm Universi ty [facility] Body weight 2022-09-24 05:32:00 85.957 kg Universi ty [facility] BMI 2022-09-24 05:32:00 27.19 kg/m2 Univers ty [facility] Oxygen saturation in 2022-09-24 05:32:00 97 /min University Arterial blood by [facility] Pulse oximetry Branch Oxygen saturation in 2020-10-13 23:35:00 97 /min University Arterial blood by [facility] Pulse oximetry Branch Systolic blood 2020-10-13 23:35:00 163 mm[Hg] Univer sity of pressure [facility] Diastolic blood 2020-10-13 23:35:00 82 mm[Hg] Unive rsity of [facility] Heart rate 2020-10-13 23:35:00 89 /min Universi ty [facility] Body temperature 2020-10-13 23:35:00 36.67 Kristina Univ ersity [facility] Respiratory rate 2020-10-13 23:35:00 20 /min Univ ersity of [facility] Body weight 2020-10-13 23:35:00 81.647 kg Universi ty [facility] BMI 2020-10-13 23:35:00 25.83 kg/m2 Universi ty [facility] Systolic blood 2020-10-13 21:40:00 146 mm[Hg] Univer sity of pressure [facility] Diastolic blood 2020-10-13 21:40:00 73 mm[Hg] Unive rsity of [facility] Heart rate 2020-10-13 21:40:00 74 /min Universi ty [facility] Respiratory rate 2020-10-13 21:40:00 18 /min Univ ersity of [facility] Body weight 2020-10-13 21:40:00 81.647 kg Universi ty [facility] BMI 2020-10-13 21:40:00 25.83 kg/m2 Universi ty [facility] [place] Oxygen saturation in 2020-10-13 21:40:00 98 /min University of Arterial blood by [facility] Pulse oximetry Branch Systolic blood 2020-10-09 08:00:00 140 mm[Hg] Univer sity of pressure [facility] Diastolic blood 2020-10-09 08:00:00 92 mm[Hg] Unive rsity of pressure [facility] [place] Heart rate 2020-10-09 08:00:00 79 /min Universi ty of [facility] Body temperature 2020-10-09 08:00:00 36.78 [facility] Respiratory rate 2020-10-09 08:00:00 19 /min [facility] Oxygen saturation in 2020-10-09 08:00:00 98 /min University of Arterial blood by [facility] Pulse oximetry Branch Body height 2020-10-09 05:18:00 177.8 cm Universi ty of [facility] [place] Body weight 2020-10-09 05:18:00 81.647 kg Universi ty [facility] BMI 2020-10-09 05:18:00 25.83 kg/m2 [facility] [place] Procedures Procedure Date / Time Performed Performing Clinician Sour e CONSENT/REFUSAL FOR 2022-09-24 05:28:08 Doctor Unassigned, No Un [facility] [place] DIAGNOSIS AND Name Medical Branch TREATMENT CONSENT/REFUSAL FOR 2020-10-13 23:34:55 Doctor Unassigned, No Un [facility] DIAGNOSIS AND Name Medical Branch TREATMENT CONSENT/REFUSAL FOR 2020-10-13 21:42:40 Doctor Unassigned, No Un [facility] [place] DIAGNOSIS AND Name Medical Branch TREATMENT XR LUMBAR SPINE 2 VW 2020-10-09 07:00:45 Ana Rosa [facility] NOTICE OF PRIVACY 2020-10-09 05:08:11 Doctor [facility]igned, No [facility] CONSENT/REFUSAL FOR 2020-10-09 05:07:59 Doctor Unassigned, No [facility] Name [facility] TREATMENT Plan of Care Planned Activity Planned Date Details Comments Source Future Scheduled 2023-02-21 [facility] 23:12:35 (#1) [code = COVID-19 VACCINE (#1)] Future Scheduled 2023-02-21 [facility] 23:12:35 screening (procedure) [code = 537712689] Future Scheduled 2023-02-21 INFLUENZA [facility]ACCINE [facility] 23:12:35 (#1) [code = INFLUENZA VACCINE (#1)] Future Scheduled 2022-03-03 COVID-19 [facility]ACCINE [facility] 22:36:16 (#1) [code = COVID-19 VACCINE (#1)] Future Scheduled 2022-03-03 [facility] Test 22:36:16 screening (procedure) [code = 966362601] Future Scheduled 2022-03-03 [facility]ENZA [facility]ACCINE [facility] Test 22:36:16 [code = INFLUENZA VACCINE] Encounters Start End Encounter Admission Attending Care Care Encounter Source Date/Time Date/Time Type Type Clinicians Facility Department ID 2022-09-24 2022-09-24 Emergency X [facility] ERT [id number] Univers 00:35:00 00:50:00 KALIA [facility] 2022-09-24 2022-09-24 Emergency Vasut, [facility] [id number] Univers 00:35:00 00:50:00 Kalia MEHTA [id number] i salvador [facility] [id number] [facility] [id number] [facility] 084 [place] 2020-10-13 2020-10-14 Emergency [facility] [id number] [place] 00:00:00 00:00:00 SAM Toth2 [facility] 2020-10-13 2020-10-13 Emergency Kaila, Johnnie TRAUMA [id number] Univers 18:36:00 20:47:00 T [place] [id number] it y of [id number] [facility] [id number] [facility] 014 Branch 2020-10-13 2020-10-13 Emergency X [facility] ERT [id number] Univers 18:20:00 18:20:00 ity [facility] 2020-10-13 2020-10-13 Emergency NolanAna Rosa [facility] [id number] Univers 16:42:00 16:49:00 Tammy Appleton [id number] i ty of Counselor [id number] [facility] [id number] [facility] 084 Branch 2020-10-13 2020-10-13 Emergency X [place] ERT [id number] Univers 16:34:00 16:34:00 ity [facility] 2020-10-09 2020-10-09 Emergency Nolan Ana Rosa [facility] [id number] Univers 00:26:00 03:30:00 Tammy [place] [id number] i ty of Counselor [id number] [facility] [id number] [facility] 084 Branch 2020-10-09 2020-10-09 Emergency X NOLAN, K [facility] ERT [id number] Univers 00:26:00 00:26:00 ity [facility] Results Test Description Test Time Test Comments Results Result Sour e Comments XR LUMBAR SPINE 2020-09-21 No fracture or Univ ersity of 2 VW 0 subluxation. [facility] Med ical 07:38:39 [id number] Electronically [facility] h signed by Federico Bingham at 10/09/2020 2:38 AM ORDERING PHYSICIAN: Ana Rosa FRANCISCO HISTORY: Lumbar pain TECHNIQUE: 3 views of the lumbar spine COMPARISON: None available. FINDINGS: There is normal vertebral body height and alignment. Disc space height is preserved. The sacroiliac joints are normal. [facility], Radiant Results Inft User - 10/09/2020 2:39 AM CDT ORDERING PHYSICIAN: Ana Rosa ROMAN BILYEUHISTORY: Lumbar painTECHNIQUE: 3 views of the lumbar spineCOMPARISON: None available.FINDINGS: There is normal vertebral body height and alignment. Disc space height is preserved.The sacroiliac joints are normal.IMPRESSIONNo fracture or subluxation.RL [id number]
[2023-02-22] MEDS ORDERED: DIPHENHYDRAMINE 50 MG/ML VIAL ONE (17:46)
[2023-02-22] MEDS ORDERED: dexAMETHasone 10 MG/ML VIAL ONE (17:47)
[2023-02-22] MEDS ORDERED: KETOROLAC 30 MG/ML INJ ONE (17:47)
[2023-02-22] MEDS ORDERED: NA CHLORIDE 0.9% 1,000 ML ONE (17:47)
[2023-02-22] MEDS ORDERED: METOCLOPRAMIDE 10 MG/2mL INJ ONE (17:47)
--- NOTE | 2023-02-22 18:54 | ER ---
Nurse's Notes [facility] Name: Hilario Lezama Age: 32 yrs Sex: Male : 1990 Arrival Date: 02/22/2023 Time: 17:05 Bed 10 Private MD: Diagnosis: Migraine without aura, not intractable Presentation: 02/22 17:17 Chief complaint: Patient states: Migraine onset today at 1530. Pt reports that this cm10 feels similar to his migraines he has had before. Pt reports nausea and taking Ibuprofen X3 with no relief. Coronavirus screen: Vaccine status: Patient reports being unvaccinated. Client denies travel out of the [place] in the last 14 days. Ebola Screen: Patient denies travel to an Ebola-affected area in the 21 days before illness onset. No symptoms or risks identified at this time. Initial Sepsis Screen: Does the patient meet any 2 criteria? No. Patient's initial sepsis screen is negative. Does the patient have a suspected source of infection? No. Patient's initial sepsis screen is negative. Risk Assessment: Do you want to hurt yourself or someone else? Patient reports no desire to harm self or others. Onset of symptoms was February 22, 2023. 17:17 Method Of Arrival: Ambulatory cm10 17:17 Acuity: ANNA 3 cm10 Triage Assessment: 19:12 General: Appears in no apparent distress. Behavior is calm, cooperative. iw Historical: - Allergies: 17:18 No Known Allergies; cm10 - PMHx: 17:18 Migraines; cm10 - PSHx: 17:18 Tonsillectomy; cm10 - Immunization history:: Adult Immunizations unknown. - Social history:: Smoking status: Patient denies any tobacco usage or history of. Screenin:45 [facility] ED Fall Risk Assessment (Adult) History of falling in the last 3 months, cm10 including since admission No falls in past 3 months (0 pts) Confusion or Disorientation No (0 pts) Intoxicated or Sedated No (0 pts) Impaired Gait No (0 pts) Mobility Assist Device Used No (0 pt) Altered Elimination No (0 pt) Score/Fall Risk Level 0 - 2 = Low Risk Oriented to surroundings, Maintained a safe environment, Hourly rounding (assess needs \T\ fall precautionary measures) done. Abuse screen: Denies threats or abuse. Denies injuries from another. Nutritional screening: No deficits noted. Tuberculosis screening: No symptoms or risk factors identified. Assessment: 18:53 Reassessment: Patient appears in no apparent distress at this time. Patient and/or iw family updated on plan of care and expected duration. Pain level reassessed. Patient is alert, oriented x 3, equal unlabored respirations, skin warm/dry/pink. Patient states feeling better. Patient states symptoms have improved. Vital Signs: 17:17 BP 136 / 99; Pulse 75; Resp 18; Temp 96.8(TE); Pulse Ox 100% ; Weight 83.91 kg; Height cm10 5 ft. 10 in. ; Pain 9/10; 17:17 Body Mass Index 26.54 (83.91 kg, 177.8 cm) cm10 17:17 Pain Scale: Adult cm10 [place] Coma Score: 17:19 Eye Response: spontaneous(4). Motor Response: obeys commands(6). Verbal Response: kb oriented(5). Total: 15. ED Course: 17:07 Patient arrived in ED. rg4 17:07 Marva Licea F[facility]-C [facility] kb 17:08 Amarjit Osuna MD is Attending Physician. kb 17:18 Triage completed. cm10 17:18 Arm band placed on Patient placed in an exam room, on a stretcher. cm10 17:45 Patient has correct armband on for positive identification. Bed in low position. Call cm10 light in reach. Provided Education on: ER process and procedures. . 17:45 No provider procedures requiring assistance completed. Inserted saline lock: 20 gauge cm10 in right antecubital area, using aseptic technique. 18:53 Miranda Hays, RN is Primary Nurse. iw 19:11 IV discontinued, intact, bleeding controlled, No redness/swelling at site. Pressure iw dressing applied. Administered Medications: 17:44 Drug: NS 0.9% IV 1000 ml IV at 1000 ml once Route: IV; Rate: 1000 ml; Site: right cm10 antecubital; 17:44 Drug: metoCLOPramide IVP 10 mg IVP once; over 1 to 2 minutes Route: IVP; Site: right cm10 antecubital; 17:44 Drug: Ketorolac IVP 15 mg IVP once Route: IVP; Site: right antecubital; cm10 17:44 Drug: diphenhydrAMINE IVP 12.5 mg IVP once Route: IVP; Site: right antecubital; cm10 17:44 Drug: Decadron - Dexamethasone IVP 10 mg IVP once Route: IVP; Site: right antecubital; cm10 Medication: 19:12 VIS not applicable for this client. iw Outcome: 18:54 Discharge ordered by MD. ponce 19:11 Discharged to home ambulatory, with family, iw 19:11 Condition: good 19:11 Discharge instructions given to patient, family, Instructed on discharge instructions, follow up and referral plans. Demonstrated understanding of instructions, follow-up care, 19:12 Patient left the ED. iw Signatures: Marva Licea, CLEMENCIA-C CLEMENCIA-Miranda Donald, RN RN iw Gloria Ruff Clarissa RN RN cm10
--- NOTE | 2023-02-22 18:54 | EDPHYS ---
Physician Documentation [facility] Name: Hilario Lezama Age: 32 yrs Sex: Male : 1990 Arrival Date: 02/22/2023 Time: 17:05 Bed 10 Private MD: ED Physician Amarjit Osuna HPI: 02/22 17:19 This 32 yrs old Male presents to ER via Ambulatory with complaints of Migraine.kb 17:19 Patient is a 32-year-old male who presents for migraine that started at 1530 today. kb States he took ibuprofen with no relief. Reports this is similar to previous migraines that he has had. Reports nausea and vomiting. Denies fever, cough, congestion, illness. Historical: - Allergies: 17:18 No Known Allergies; cm10 - PMHx: 17:18 Migraines; cm10 - PSHx: 17:18 Tonsillectomy; cm10 - Immunization history:: Adult Immunizations unknown. - Social history:: Smoking status: Patient denies any tobacco usage or history of. ROS: 17:19 Constitutional: Negative for fever, chills, and weight loss, kb 17:19 Abdomen/GI: Positive for nausea and vomiting, Negative for abdominal pain, 17:19 Neuro: Positive for headache, 17:19 All other systems are negative, Exam: 17:19 Constitutional: This is a well developed, well nourished patient who is awake, alert, kb and in no acute distress. Head/Face: Normocephalic, atraumatic. ENT: Moist Mucous membranes Cardiovascular: Regular rate Respiratory: Respirations even and unlabored. No increased work of breathing. Talking in full sentences Abdomen/GI: Soft, non-tender. No distention Skin: Warm, dry with normal turgor. Normal color. MS/ Extremity: Pulses equal, no cyanosis. Neurovascular intact. Full, normal range of motion. Neuro: Awake and alert, GCS 15, oriented to person, place, time, and situation. Moves all extremities. Normal gait. Vital Signs: 17:17 BP 136 / 99; Pulse 75; Resp 18; Temp 96.8(TE); Pulse Ox 100% ; Weight 83.91 kg; Height cm10 5 ft. 10 in. ; Pain 9/10; 17:17 Body Mass Index 26.54 (83.91 kg, 177.8 cm) cm10 17:17 Pain Scale: Adult cm10 Patricia Coma Score: 17:19 Eye Response: spontaneous(4). Motor Response: obeys commands(6). Verbal Response: kb oriented(5). Total: 15. MDM: 17:08 Patient medically screened. kb 17:19 Differential diagnosis: cluster headache, migraine, tension headache. Data reviewed: kb vital signs, nurses notes. 18:53 Counseling: I had a detailed discussion with the patient and/or guardian regarding the kb historical points, exam findings, and any diagnostic results supporting the discharge/admit diagnosis, the need for outpatient follow up, a family practitioner, to return to the emergency department if symptoms worsen or persist or if there are any questions or concerns that arise at home. 18:54 Response to treatment: the patient's symptoms have resolved after treatment, the kb patient's pain is gone. 02/22 17:18 Order name: IV Start; Complete Time: 17:44 kb Administered Medications: 17:44 Drug: NS 0.9% IV 1000 ml IV at 1000 ml once Route: IV; Rate: 1000 ml; Site: right cm10 antecubital; 17:44 Drug: metoCLOPramide IVP 10 mg IVP once; over 1 to 2 minutes Route: IVP; Site: right cm10 antecubital; 17:44 Drug: Ketorolac IVP 15 mg IVP once Route: IVP; Site: right antecubital; cm10 17:44 Drug: diphenhydrAMINE IVP 12.5 mg IVP once Route: IVP; Site: right antecubital; cm10 17:44 Drug: Decadron - Dexamethasone IVP 10 mg IVP once Route: IVP; Site: right antecubital; cm10 Disposition Summary: 02/22/23 18:54 Discharge Ordered Notes: Location: Home kb Condition: Stable kb Diagnosis - Migraine without aura, not intractable kb Followup: kb - With: Emergency Department - When: As needed - Reason: Worsening of condition Followup: kb - With: Private Physician - When: 2 - 3 days - Reason: Recheck today's complaints, Continuance of care, Re-evaluation by your physician Discharge Instructions: - Discharge Summary Sheet kb - Migraine Headache, [id number] kb Forms: - Medication Reconciliation Form kb - Thank You Letter kb - Antibiotic Education kb - Prescription Opioid Use kb - Patient Portal Instructions kb - Leadership Thank You Letter kb Signatures: Marva Licea FNP-C CLEMENCIA-Jany Eldridge, RN RN cm10
[2023-02-22 19:46] VITALS: BP 136/99; TEMP 96.8; O2SAT 100
== END 2023-02-22 19:12 | disposition home or self-care (01) ==
LOC: ER 17:05
DX: G43.009 Migraine without aura, not intractable, without status migrainosus (principal)
CPT/HCPCS: 96374; 96375; 99284; J1100; J1200; J2765; J7030

== ENCOUNTER 2023-07-06 08:56 | Emergency (ER) | payer SELFPAY ==
[2023-07-06] MEDS ORDERED: IBUPROFEN 400 MG TAB ONE (09:09)
[2023-07-06 10:04] LABS: SARS-CoV-2 Antigen CONTROL BLUE LINE VIS/BG OK; SARS-CoV-2 Antigen Rapid Res Negative (Negative)
--- NOTE | 2023-07-06 10:13 | ER ---
Nurse's Notes [facility] Name: Hilario Lezama Age: 33 yrs Sex: Male : 1990 Arrival Date: 07/06/2023 Time: 08:56 Bed 6 Private MD: Diagnosis: Acute pharyngitis, unspecified Presentation: 07/05 09:04 Chief complaint: Patient states: Sore throat and fever since last night. Coronavirus ld1 screen: At this time, the client does not indicate any symptoms associated with coronavirus-19. Ebola Screen: No symptoms or risks identified at this time. Initial Sepsis Screen: Does the patient meet any 2 criteria? No. Patient's initial sepsis screen is negative. Does the patient have a suspected source of infection? No. Patient's initial sepsis screen is negative. Risk Assessment: Do you want to hurt yourself or someone else? Patient reports no desire to harm self or others. Onset of symptoms was July 06, 2023. 09:04 Method Of Arrival: Ambulatory ld1 09:04 Acuity: ANNA 4 ld1 Triage Assessment: 09:04 General: Appears in no apparent distress. comfortable, Behavior is calm, cooperative, ld1 appropriate for age. Pain: Denies pain. EENT: Throat is reddened Reports sore throat. Neuro: Level of Consciousness is awake, alert, obeys commands, Oriented to person, place, time, situation. Cardiovascular: Capillary refill < 3 seconds Patient's skin is warm and dry. Respiratory: Airway is patent Respiratory effort is even, unlabored. GI: Abdomen is flat, distended. : No signs and/or symptoms were reported regarding the genitourinary system. Derm: No signs and/or symptoms reported regarding the dermatologic system. Musculoskeletal: No signs and/or symptoms reported regarding the musculoskeletal system. Historical: - Allergies: 09:01 No Known Allergies; ll1 - PMHx: 09:00 Migraines; ll1 - PSHx: 09:00 Tonsillectomy; ll1 - Immunization history:: Adult Immunizations up to date. - Infectious Disease History:: Denies. - Social history:: Smoking status: Patient denies any tobacco usage or history of. Patient/guardian denies using alcohol. Screenin:06 [facility] ED Fall Risk Assessment (Adult) History of falling in the last 3 months, ld1 including since admission No falls in past 3 months (0 pts). Abuse screen: Denies threats or abuse. Denies injuries from another. Nutritional screening: No deficits noted. Tuberculosis screening: No symptoms or risk factors identified. Assessment: 09:06 Reassessment: See triage assessment. Respiratory: Airway is patent Respiratory effort ld1 is even, unlabored, Breath sounds are clear bilaterally. 10:16 General: Appears in no apparent distress. uncomfortable, Behavior is calm, cooperative. rs5 Pain: Complains of pain in back of throat Pain currently is 1 out of 10 on a pain scale. Quality of pain is described as aching, Is continuous. Neuro: Level of Consciousness is awake, alert, obeys commands, Oriented to person, place, time, situation. Cardiovascular: Patient's skin is warm and dry. Rhythm is regular. Respiratory: Respiratory effort is even, unlabored, Respiratory pattern is regular, symmetrical. GI: Abdomen is round non-distended, Abd is soft and non tender X 4 quads. : No signs and/or symptoms were reported regarding the genitourinary system. EENT: No signs and/or symptoms were reported regarding the EENT system. Derm: Skin is intact, Skin is pink, warm \T\ dry. Musculoskeletal: Range of motion: intact in all extremities. Vital Signs: 09:04 BP 138 / 83; Pulse 82; Resp 18; Temp 98.3(O); Pulse Ox 96% on R/A; Weight 86 kg; Height ld1 5 ft. 9 in. ; Pain 0/10; 10:17 BP 135 / 80; Pulse 77; Resp 18; Pulse Ox 99% on R/A; rs5 09:04 Body Mass Index 28.00 (86.00 kg, 175.26 cm) ld1 09:04 Pain Scale: Adult ld1 ED Course: 08:59 Patient arrived in ED. mr 08:59 Arm band placed on Patient placed in an exam room, on a stretcher. ll1 09:00 Nika King PA-C is PHCP. sb4 09:00 Shoaib Carbone MD is Attending Physician. sb4 09:04 Dianne Wells, GRECIA is Primary Nurse. ld1 09:05 Triage completed. ld1 09:06 Patient has correct armband on for positive identification. Placed in gown. Bed in low ld1 position. Call light in reach. Side rails up X2. property assessment monitor on. Pulse ox on. NIBP on. Door closed. Noise minimized. 09:06 No provider procedures requiring assistance completed. ld1 10:31 Patient did not have IV access during this emergency room visit. rs5 Administered Medications: 09:21 Drug: Ibuprofen PO 600 mg PO once Route: PO; rs5 10:18 Follow up: Response: No adverse reaction rs5 Medication: : VIS not applicable for this client. ld1 Outcome: 10:12 Discharge ordered by . sb4 10: Discharged to home ambulatory, with family, rs5 10: Condition: stable 10:31 Discharge instructions given to patient, family, Instructed on discharge instructions, follow up and referral plans. medication usage, Demonstrated understanding of instructions, follow-up care, medications, Prescriptions given X 1, 10: Discharged to home ambulatory, ld1 10:31 Condition: stable 10:31 Discharge instructions given to :31 Patient left the ED. rs5 Signatures: Aziza Gunter, Tawanda Reg mr Melina Osborn, RN RN ll1 Dianne Wells RN RN ld1 Nika King PA-C PA-C sb4 Jose Grey, GRECIA RN rs5 Corrections: (The following items were deleted from the chart) 10:18 10:16 Pain: Complains of pain in back of throat Quality of pain is described as aching, rs5 Is continuous, rs5
--- NOTE | 2023-07-06 10:13 | EDPHYS ---
Physician Documentation [facility] Name: Hilario Lezama Age: 33 yrs Sex: Male : 1990 Arrival Date: 07/06/2023 Time: 08:56 Bed 6 Private MD: ED Physician Shoaib Carbone HPI: 07/05 09:05 This 33 yrs old Male presents to ER via Unassigned with complaints of Fever, sb4 Sore Throat. 09:05 Patient states that he started experiencing a sore throat about 2 days ago. He states sb4 that it has gotten progressively worse. States that overnight, he woke up with what he states feels like a fever. He did not check it but he did take some Mucinex that had acetaminophen in it. He also endorses mild cough and sinus congestion. Denies any sick contacts. Historical: - Allergies: 09:01 No Known Allergies; ll1 - PMHx: 09:00 Migraines; ll1 - PSHx: 09:00 Tonsillectomy; ll1 - Immunization history:: Adult Immunizations up to date. - Infectious Disease History:: Denies. - Social history:: Smoking status: Patient denies any tobacco usage or history of. Patient/guardian denies using alcohol. ROS: 09:05 Cardiovascular: Negative for chest pain, palpitations, and edema, sb4 09:05 Constitutional: Positive for fever, 09:05 ENT: Positive for sinus congestion, sore throat, 09:05 Respiratory: Positive for cough, 09:05 All other systems are negative, Exam: 09:05 Constitutional: This is a well developed, well nourished patient who is awake, alert, sb4 and in no acute distress. Head/Face: Normocephalic, atraumatic. Eyes: Extra-ocular motions intact. Periorbital areas with no swelling, redness, or edema. ENT: Mucous membranes moist. Cardiovascular: Regular rate and rhythm with a normal S1 and S2. Respiratory: Lungs have equal breath sounds bilaterally, clear to auscultation and percussion. No rales, rhonchi or wheezes noted. No increased work of breathing, no retractions or nasal flaring. Abdomen/GI: Soft, non-tender, no distension. Skin: Warm, dry with normal turgor. Normal color with no rashes, no lesions, and no evidence of cellulitis. MS/ Extremity: Pulses equal, no cyanosis. Neurovascular intact. Full, normal range of motion. Psych: Awake, alert, with orientation to person, place and time. Behavior, mood, and affect are within normal limits. 10:13 ENT: Posterior pharynx: Airway: no evidence of obstruction, patent, Tonsils: absent, sb4 Uvula: erythema, swelling, that is mild, erythema, that is moderate, Vital Signs: 09:04 BP 138 / 83; Pulse 82; Resp 18; Temp 98.3(O); Pulse Ox 96% on R/A; Weight 86 kg; Height ld1 5 ft. 9 in. ; Pain 0/10; 10:17 BP 135 / 80; Pulse 77; Resp 18; Pulse Ox 99% on R/A; rs5 09:04 Body Mass Index 28.00 (86.00 kg, 175.26 cm) ld1 09:04 Pain Scale: Adult ld1 MDM: 09:00 Patient medically screened. sb4 09:05 Differential diagnosis: viral Infection, bacterial infection, URI. sb4 10:12 Data reviewed: vital signs, nurses notes, lab test result(s), and as a result, I will sb4 discharge patient. Counseling: I had a detailed discussion with the patient and/or guardian regarding the historical points, exam findings, and any diagnostic results supporting the discharge/admit diagnosis, lab results, to return to the emergency department if symptoms worsen or persist or if there are any questions or concerns that arise at home. 07/05 09:05 Order name: SARS RAPID; Complete Time: 10:07 sb4 07/05 09:05 Order name: Flu; Complete Time: 10:07 sb4 07/05 09:05 Order name: Strep sb4 07/05 10:05 Order name: Throat Culture EDMS Administered Medications: 09:21 Drug: Ibuprofen PO 600 mg PO once Route: PO; rs5 10:18 Follow up: Response: No adverse reaction rs5 Disposition: 10:42 Co-signature as Attending Physician, Shoaib Carbone MD I reviewed the patient's care rn provided by the Advanced Practice Provider and agree with the diagnosis and treatment plan. Disposition Summary: 07/06/23 10:12 Discharge Ordered Notes: Location: Home sb4 Problem: new sb4 Symptoms: are unchanged sb4 Condition: Stable sb4 Diagnosis - Acute pharyngitis, unspecified sb4 Followup: sb4 - With: Emergency Department - When: As needed - Reason: Trouble breathing, Worsening of condition Discharge Instructions: - Discharge Summary Sheet sb4 - Pharyngitis, [id number] sb4 Forms: - Work release form sb4 - Thank You Letter sb4 - Antibiotic Education sb4 - Patient Portal Instructions sb4 - Leadership Thank You Letter sb4 Prescriptions: - Amoxicillin 875 mg Oral Tablet - take 1 tablet ORAL route every 12 hours for 10 days; 20 tablet; Refills: 0, sb4 Product Selection Permitted Signatures: Dispatcher [employer] EDShoaib Conner MD MD rn Lewis, Lynsay RN RN ll1 Dianne Wells RN RN ld1 Nika King PA-C PA-C sb4 Jose Grey RN RN rs5
[2023-07-06 11:14] VITALS: BP 135/80; TEMP 98.3; O2SAT 99
== END 2023-07-06 10:31 | disposition home or self-care (01) ==
LOC: ER 08:56
DX: J02.9 Acute pharyngitis, unspecified (principal); Z11.52 Encounter for screening for COVID-19
CPT/HCPCS: 36415; 87070; 87081; 87804; 87811; 99284

== ENCOUNTER 2024-04-22 17:39 | Emergency (ER) | payer SELFPAY ==
--- NOTE | 2024-04-22 19:21 | RAD REPORT ---
EXAM: Chest Pa And Lat (2 Views) HISTORY: 34 years Male Congestion;Cough COMPARISON: 05/01/2021 FINDINGS: LUNGS/PLEURA: The lungs are clear. No pleural effusions or pneumothorax. No pulmonary edema. MEDIASTINUM: The mediastinal silhouette is within normal limits CARDIAC: The cardiac silhouette is within normal limits. UPPER ABDOMEN: No significant abnormality. BONES: No acute abnormality. LINES/TUBES/OTHER: N/A IMPRESSION: No evidence of acute cardiopulmonary disease.
[2024-04-22 19:27] LABS: Absolute Lymphocytes (CBC) 0.5 K/uL (0.7-4.9); Absolute Monocytes 0.9 K/uL (0.1-1.3); Absolute Neutrophil 6.3 K/uL (1.8-8.0); Basophils % 0.2 % (0-1.3); Eosinophils % 0.2 % (0-4.4); Hematocrit 43.3 % (39.6-49.0); Hemoglobin 14.5 g/dL (13.6-17.9); MCH 26.9 pg (27.0-35.0); MCHC 33.5 g/dL (32.0-36.0); MCV 80.3 fL (80-100); MPV 8.8 fL (7.6-11.3); Monocytes % 11.4 % (3.3-12.3); Neutrophils % 82.2 % (41.7-73.7); Nucleated Red Blood Cells % 0.1 % (0-0); Platelets 229 thou/uL (152-406); RBC Red Blood Cell Count 5.39 M/uL (4.33-5.43); Red Cell Distribution Width 13.7 % (12.1-15.2); SARS-CoV-2 Antigen CONTROL BLUE LINE VIS/BG OK; SARS-CoV-2 Antigen Rapid Res Negative (Negative)
[2024-04-22 19:29] LABS: Anion Gap 12.2 mEq/L (5.0-15.0); Potassium 4.2 mEq/L (3.5-5.1)
[2024-04-22] MEDS ORDERED: ACETAMINOPHEN 500 MG TAB ONE (20:16)
[2024-04-22] MEDS ORDERED: ONDANSETRON 4 MG/2 ML VIAL ONE (20:16)
[2024-04-22] MEDS ORDERED: KETOROLAC 30 MG/ML INJ ONE (20:17)
[2024-04-22] MEDS ORDERED: NA CHLORIDE 0.9% 1,000 ML ONE (20:17)
[2024-04-22] MEDS ORDERED: OSELTAMIVIR 75 MG CAP PO ONE (20:17)
--- NOTE | 2024-04-22 21:32 | ER ---
Nurse's Notes [facility] Name: Hilario Lezama Age: 34 yrs Sex: Male : 1990 Arrival Date: 04/22/2024 Time: 17:39 Bed DX4 Private MD: Diagnosis: Influenza due to identified novel influenza A virus Presentation: 04/22 17:56 Chief complaint: Patient states: POLLOCK, cough, body aches, weak, fatigue, fever, N/V for 1 ll1 day. Coronavirus screen: Client denies travel out of the [place] in the last 14 days. cough unrelated to allergies, fatigue, headache, muscle pain, nausea, vomiting. Client presents with at least one sign or symptom that may indicate coronavirus-19. Standard/surgical mask placed on the client. Ebola Screen: Patient denies travel to an Ebola-affected area in the 21 days before illness onset. Initial Sepsis Screen: Does the patient meet any 2 criteria? No. Patient's initial sepsis screen is negative. Does the patient have a suspected source of infection? No. Patient's initial sepsis screen is negative. Risk Assessment: Do you want to hurt yourself or someone else? Patient reports no desire to harm self or others. Onset of symptoms was April 22, 2024. 17:56 Method Of Arrival: Ambulatory ll1 17:56 Acuity: ANNA 3 ll1 Triage Assessment: 17:55 General: Appears distressed, uncomfortable, ill, Behavior is calm, cooperative, ll1 appropriate for age. General: Reports fever for fatigue for. Pain: Complains of pain in head Quality of pain is described as aching. Neuro: Reports headache weakness. Respiratory: Reports cough that is. GI: Reports nausea, vomiting. 22:15 Headache History: The patient has had previous headaches and this one is different than lg3 previous episodes. Pain: Pain began 1 day ago. Also complains of decreased appetite, shortness of breath. Historical: - Allergies: 17:55 No Known Allergies; ll1 - PMHx: 17:45 Migraines; hb - PSHx: 17:45 Tonsillectomy; hb - Immunization history:: Adult Immunizations up to date. - Infectious Disease History:: Denies. - Social history:: Smoking status: Patient denies any tobacco usage or history of. Screenin:08 [facility] ED Fall Risk Assessment (Adult) History of falling in the last 3 months, lg3 including since admission No falls in past 3 months (0 pts) Confusion or Disorientation No (0 pts) Intoxicated or Sedated No (0 pts) Impaired Gait No (0 pts) Mobility Assist Device Used No (0 pt) Altered Elimination No (0 pt) Score/Fall Risk Level 0 - 2 = Low Risk Oriented to surroundings, Maintained a safe environment, Educated pt \T\ family on fall prevention, incl call for assistance when getting out of bed, Assessed \T\ reinforced patient's understanding of fall precautions. Abuse screen: Denies threats or abuse. Denies injuries from another. Nutritional screening: No deficits noted. Tuberculosis screening: No symptoms or risk factors identified. Assessment: 20:10 General: Appears in no apparent distress. uncomfortable, Behavior is calm, cooperative. al5 Pain: Complains of pain in left oriental orthodox and right oriental orthodox Pain currently is 10 out of 10 on a pain scale. Neuro: Level of Consciousness is awake, alert, obeys commands, Oriented to person, place, time, situation. Cardiovascular: Capillary refill < 3 seconds Patient's skin is warm and dry. Respiratory: Airway is patent Respiratory effort is even, unlabored, Respiratory pattern is regular, symmetrical. GI: No signs and/or symptoms were reported involving the gastrointestinal system. : No signs and/or symptoms were reported regarding the genitourinary system. EENT: Reports flu like symptoms, fever. Derm: Skin is intact, is healthy with good turgor, Skin is pink, warm \T\ dry. normal. Musculoskeletal: No signs and/or symptoms reported regarding the musculoskeletal system. 21:08 General: Appears in no apparent distress. Behavior is cooperative, fussy. Pain: lg3 Complains of pain in head. Neuro: Level of Consciousness is awake, alert, obeys commands, Oriented to person, place, time, situation. Cardiovascular: No deficits noted. Respiratory: No deficits noted. Airway is patent Respiratory effort is even, unlabored, Respiratory pattern is regular, symmetrical. 22:15 Reassessment: Patient appears in no apparent distress at this time. No changes from lg3 previously documented assessment. Patient and/or family updated on plan of care and expected duration. Pain level reassessed. Patient is alert, oriented x 3, equal unlabored respirations, skin warm/dry/pink. Vital Signs: 17:56 BP 166 / 82; Pulse 110; Resp 18; Temp 101.4; Pulse Ox 97% ; Weight 86.18 kg; Height 5 ll1 ft. 10 in. ; Pain 8/10; 20:03 BP 157 / 96; Pulse 103; Resp 18; Temp 99.8(O); Pulse Ox 98% on R/A; al5 21:16 BP 140 / 79; Pulse 100; Resp 22; Temp 100.9; Pulse Ox 94% on R/A; hw 17:56 Body Mass Index 27.26 (86.18 kg, 177.8 cm) ll1 17:56 Pain Scale: Adult ll1 ED Course: 17:43 Patient arrived in ED. sj2 17:44 Arm band placed on. hb 17:45 Nika King PA-C is PHCP. sb4 17:45 Savanah Ledesma MD is Attending Physician. sb4 17:57 Triage completed. ll1 18:46 Chest Pa And Lat (2 Views) XRAY In Process Unspecified. EDMS 19:06 Inserted saline lock: 22 gauge in right antecubital area, using aseptic technique. km Blood collected. Flushed with 10 mL NS. 19:06 Initial lab(s) drawn, by me, sent to lab. Flu and/or RSV swab sent to lab. kmf 19:06 Strep swab sent to lab. kmf 21:08 Patient has correct armband on for positive identification. Family accompanied patient. lg3 21:08 No provider procedures requiring assistance completed. Patient maintains SpO2 lg3 saturation greater than 95% on room air. 22:16 IV discontinued, intact, bleeding controlled, No redness/swelling at site. Pressure lg3 dressing applied. Administered Medications: 20:29 Drug: Acetaminophen PO 1000 mg PO once Route: PO; lg3 22:15 Follow up: Response: No adverse reaction; Marked relief of symptoms; Temperature is lg3 decreased 20:29 Drug: Ondansetron IVP 4 mg IVP once; over 2 minutes Route: IVP; Site: right antecubital;lg3 21:08 Follow up: Response: No adverse reaction lg3 20:29 Drug: Oseltamivir PO 75 mg PO once Route: PO; lg3 21:07 Follow up: Response: No adverse reaction lg3 20:30 Drug: NS 0.9% IV 1000 ml IV at 1 bolus Per protocol; to be given as a bolus over 60 lg3 minutes Route: IV; Rate: 1 bolus; Site: right antecubital; 21:08 Follow up: Response: No adverse reaction; IV Status: Completed infusion; IV Intake: lg3 1000ml 20:30 Drug: Ketorolac IVP 15 mg IVP once Route: IVP; Site: right antecubital; lg3 21:08 Follow up: Response: No adverse reaction; Marked relief of symptoms lg3 Medication: 21:08 VIS not applicable for this client. lg3 Intake: 21:08 IV: 1000ml; Total: 1000ml. lg3 Outcome: 21:31 Discharge ordered by MD. sb4 22:16 Discharged to home ambulatory, with significant other, lg3 22:16 Condition: stable 22:16 Discharge instructions given to patient, Instructed on discharge instructions, follow up and referral plans. medication usage, Demonstrated understanding of instructions, follow-up care, medications, Prescriptions given X 2, 22:16 Patient left the ED. lg3 Signatures: Dispatcher [employer] EDMS Jadyn Saini RN RN Annalisa Clancy RN GRECIA lg3 Melina Osborn RN RN ll1 Nika King PA-C PAJuanis Cantrell [facility] Joanne Cuevas RN RN al5 Annetta Negro Sonceria sj2 Corrections: (The following items were deleted from the chart) 20:03 19:55 BP 138 / 100; Pulse 79bpm; Resp 18bpm; Pulse Ox 99% RA; Temp 98.2F Oral; al5 al5 20:12 19:54 General: Appears in no apparent distress. Behavior is calm, cooperative, al5 al5 20:12 19:54 Pain: Complains of pain in right oriental orthodox, left oriental orthodox, right jaw and left jaw al5 al5 20:12 19:54 Neuro: Level of Consciousness is awake, alert, obeys commands, Oriented to al5 person, place, time, situation, al5 20:12 19:54 Cardiovascular: Capillary refill < 3 seconds Patient's skin is warm and dry. al5 al5 20:12 19:54 Respiratory: Airway is patent Respiratory effort is even, unlabored, Respiratory al5 pattern is regular, symmetrical, al5 20: 19:54 GI: Abdomen is non-distended, al5 al5 20: 19:54 EENT: Reports fever, headache. al5 al5 : 19:54 : No signs and/or symptoms were reported regarding the genitourinary system. al5al5 20: 19:54 GI: Reports nausea, al5 al5 20: 19:54 Derm: Skin is intact, is healthy with good turgor, Skin is pink, warm \T\ dry. al5 normal, al5 : 19:54 Musculoskeletal: Reports weakness in generalized al5 al5 22:16 21:39 IV discontinued, intact, bleeding controlled, No redness/swelling at site. lg3 Pressure dressing applied, kmf
--- NOTE | 2024-04-22 21:32 | EDPHYS ---
Physician Documentation [facility] Name: Hilario Lezama Age: 34 yrs Sex: Male : 1990 Arrival Date: 04/22/2024 Time: 17:39 Bed DX4 Private MD: ED Physician Savanah Ledesma HPI: 04/22 18:17 This 34 yrs old Male presents to ER via Ambulatory with complaints of Fever, sb4 Headache, Weakness, Vomiting, Flu Symptoms, Hurts All Over. 18:17 Patient reports headache, nausea, vomiting, sinus congestion, cough, body aches, sb4 weakness x 24 hours. He denies any known sick contacts. States that he took 1 dose of Robitussin and amoxicillin today without significant improvement in symptoms. Does report some shortness of breath, denies any chest pain. Denies any chronic medical problems. Does not smoke. No cardiac or lung history. Historical: - Allergies: 17:55 No Known Allergies; ll1 - PMHx: 17:45 Migraines; hb - PSHx: 17:45 Tonsillectomy; hb - Immunization history:: Adult Immunizations up to date. - Infectious Disease History:: Denies. - Social history:: Smoking status: Patient denies any tobacco usage or history of. ROS: 18:17 Skin: Negative for injury, rash, and discoloration, sb4 18:17 Constitutional: Positive for body aches, fatigue, fever, malaise, 18:17 ENT: Positive for sore throat, 18:17 Respiratory: Positive for cough, 18:17 Abdomen/GI: Positive for nausea and vomiting, 18:17 All other systems are negative, Exam: 19:02 Head/Face: Normocephalic, atraumatic. Eyes: Extra-ocular motions intact. Periorbital sb4 areas with no swelling, redness, or edema. ENT: Mucous membranes moist. Respiratory: No increased work of breathing, no retractions or nasal flaring. Abdomen/GI: Soft, non-tender, no distension. 19:02 Constitutional: The patient appears alert, awake, obviously ill, 19:02 Cardiovascular: Rate: tachycardic, Rhythm: regular, 19:02 Respiratory: Breath sounds: are clear throughout, 19:02 Skin: Appearance: Temperature: warm, Vital Signs: 17:56 BP 166 / 82; Pulse 110; Resp 18; Temp 101.4; Pulse Ox 97% ; Weight 86.18 kg; Height 5 ll1 ft. 10 in. ; Pain 8/10; 20:03 BP 157 / 96; Pulse 103; Resp 18; Temp 99.8(O); Pulse Ox 98% on R/A; al5 21:16 BP 140 / 79; Pulse 100; Resp 22; Temp 100.9; Pulse Ox 94% on R/A; hw 17:56 Body Mass Index 27.26 (86.18 kg, 177.8 cm) ll1 17:56 Pain Scale: Adult ll1 MDM: 17:48 Medical Screening Exam initiated sb4 19:32 Data reviewed: vital signs, nurses notes, lab test result(s), radiologic studies, and sb4 as a result, I will discharge patient. Historians other than the Patient: Spouse/Significant Other: significant other. Counseling: I had a detailed discussion with the patient and/or guardian regarding the historical points, exam findings, and any diagnostic results supporting the discharge/admit diagnosis, lab results, radiology results, the need for outpatient follow up, for definitive care, to return to the emergency department if symptoms worsen or persist or if there are any questions or concerns that arise at home. 04/22 18:03 Order name: SARS RAPID; Complete Time: 19:28 sb4 04/22 18:03 Order name: Flu; Complete Time: 19:28 sb4 04/22 18:03 Order name: Strep; Complete Time: 19:30 sb4 04/22 18:03 Order name: CBC with Diff; Complete Time: 19:30 sb4 04/22 18:03 Order name: BMP; Complete Time: 19:30 sb4 04/22 19:31 Order name: Throat Culture EDID 04/22 18:03 Order name: Chest Pa And Lat (2 Views) XRAY; Complete Time: 19:22 sb4 04/22 18:03 Order name: IV Start; Complete Time: 20:36 sb4 Administered Medications: 20:29 Drug: Acetaminophen PO 1000 mg PO once Route: PO; lg3 22:15 Follow up: Response: No adverse reaction; Marked relief of symptoms; Temperature is lg3 decreased 20:29 Drug: Ondansetron IVP 4 mg IVP once; over 2 minutes Route: IVP; Site: right antecubital;lg3 21:08 Follow up: Response: No adverse reaction lg3 20:29 Drug: Oseltamivir PO 75 mg PO once Route: PO; lg3 21:07 Follow up: Response: No adverse reaction lg3 20:30 Drug: NS 0.9% IV 1000 ml IV at 1 bolus Per protocol; to be given as a bolus over 60 lg3 minutes Route: IV; Rate: 1 bolus; Site: right antecubital; 21:08 Follow up: Response: No adverse reaction; IV Status: Completed infusion; IV Intake: lg3 1000ml 20:30 Drug: Ketorolac IVP 15 mg IVP once Route: IVP; Site: right antecubital; lg3 21:08 Follow up: Response: No adverse reaction; Marked relief of symptoms lg3 Disposition Summary: 04/22/24 21:31 Discharge Ordered Notes: Location: Home sb4 Problem: new sb4 Symptoms: have improved sb4 Condition: Stable sb4 Diagnosis - Influenza due to identified novel influenza A virus sb4 Followup: sb4 - With: Emergency Department - When: As needed - Reason: Trouble breathing, Worsening of condition Discharge Instructions: - Discharge Summary Sheet sb4 - Influenza, Adult, [id number] sb4 Forms: - Patient Portal Instructions sb4 - Leadership Thank You Letter sb4 Prescriptions: - Tamiflu 75 mg Oral capsule - take 1 tablet ORAL route every 12 hours for 5 days; 10 tablet; Refills: 0, sb4 Product Selection Permitted - ondansetron 8 mg Oral Tablet,disintegrating - take 1 tablet ORAL route every 8 hours PRN nausea/vomiting; 10 tablet; Refills: sb4 0, Product Selection Permitted Signatures: Dispatcher [employer] EDJadyn Lewis RN Annalisa Fisher RN RN lg3 Melina Osborn RN RN ll1 Nika King, PA-C PA-C sb4 Corrections: (The following items were deleted from the chart) 18:03 18:03 Chest Pa And Lat (2 Views)+[email or web address] ordered. EDMS LYUBOV
[2024-04-22 22:42] VITALS: BP 140/79; TEMP 100.9; O2SAT 94
== END 2024-04-22 22:16 | disposition home or self-care (01) ==
LOC: ER 17:39
DX: J09.X2 Influenza due to identified novel influenza A virus with other respiratory manifestations (principal); Z11.52 Encounter for screening for COVID-19
CPT/HCPCS: 36415; 71046; 80048; 85025; 87070; 87081; 87804; 87811; 96361; 96374; 96375; 99284; J2405; J7030

== ENCOUNTER 2024-05-19 16:20 | Emergency (ER) | payer SELFPAY ==
[2024-05-19] MEDS ORDERED: NA CHLORIDE 0.9% 1,000 ML ONE (16:59)
[2024-05-19] MEDS ORDERED: DIPHENHYDRAMINE 50 MG/ML VIAL ONE (16:59)
[2024-05-19] MEDS ORDERED: dexAMETHasone 10 MG/ML VIAL ONE (16:59)
[2024-05-19] MEDS ORDERED: METOCLOPRAMIDE 10 MG/2mL INJ ONE (16:59)
--- NOTE | 2024-05-19 18:00 | EDPHYS ---
Physician Documentation [facility] Name: Hilario Lezama Age: 34 yrs Sex: Male : 1990 Arrival Date: 05/19/2024 Time: 16:20 Bed 13 Private MD: ED Physician Shoiab Carbone HPI: 05/19 16:32 This 34 yrs old Male presents to ER via Ambulatory with complaints of Headache.sb4 16:32 Migraine onset 1 hour ago. Took Motrin APIARIST and another unknown migraine medication sb4 without relief. has thrown up once. has history of migraines, feels similar to prior. does not take any preventative medications, has not seen neuro. Historical: - Allergies: 16:31 No Known Allergies; ap3 - PMHx: 16:31 Migraines; ap3 - PSHx: 16:31 Tonsillectomy; ap3 - Immunization history:: Adult Immunizations up to date. - Infectious Disease History:: Denies. - Social history:: Smoking status: Patient denies any tobacco usage or history of. ROS: 16:33 Constitutional: Negative for fever, chills, and weight loss, sb4 16:33 Neuro: Positive for headache, 16:33 All other systems are negative, Exam: 16:33 Head/Face: Normocephalic, atraumatic. Eyes: Extra-ocular motions intact. Periorbital sb4 areas with no swelling, redness, or edema. ENT: Mucous membranes moist. Cardiovascular: Regular rate and rhythm with a normal S1 and S2. Respiratory: No increased work of breathing, no retractions or nasal flaring. Abdomen/GI: Soft, non-tender, no distension. Skin: Warm, dry with normal turgor. Normal color with no rashes, no lesions, and no evidence of cellulitis. Neuro: Awake and alert, GCS 15, oriented to person, place, time, and situation. Motor strength 5/5 in all extremities. Sensory grossly intact. 16:33 Constitutional: The patient appears alert, awake, in obvious pain, uncomfortable, Vital Signs: 16:30 BP 133 / 95; Pulse 88; Resp 18; Temp 98.5; Pulse Ox 100% ; Weight 88.45 kg; Pain 10/10; ap3 17:30 BP 126 / 86; Pulse 71; Resp 15; Pulse Ox 100% on R/A; cm10 18:00 BP 124 / 87; Pulse 65; Resp 15; Pulse Ox 100% on R/A; cm10 16:30 Pain Scale: Adult ap3 [place] Coma Score: 18:33 Eye Response: spontaneous(4). Motor Response: obeys commands(6). Verbal Response: sb4 oriented(5). Total: 15. MDM: 16:22 Medical Screening Exam initiated sb4 18:33 Data reviewed: vital signs, nurses notes, and as a result, I will discharge patient. sb4 Counseling: I had a detailed discussion with the patient and/or guardian regarding the historical points, exam findings, and any diagnostic results supporting the discharge/admit diagnosis, the need for outpatient follow up, for definitive care, a neurologist, to return to the emergency department if symptoms worsen or persist or if there are any questions or concerns that arise at home. 05/19 16:31 Order name: IV Start; Complete Time: 17:16 sb4 Administered Medications: 17:16 Drug: diphenhydrAMINE IVP 25 mg IVP once Route: IVP; Site: left antecubital; cm10 18:14 Follow up: Response: No adverse reaction cm10 17:16 Drug: metoCLOPramide IVP 10 mg IVP once; over 1 to 2 minutes Route: IVP; Site: left cm10 antecubital; 18:14 Follow up: Response: No adverse reaction cm10 17:16 Drug: Decadron - Dexamethasone IVP 10 mg IVP once Route: IVP; Site: left antecubital; cm10 18:14 Follow up: Response: No adverse reaction cm10 17:16 Drug: NS 0.9% IV 1000 ml IV at 1 bolus Per protocol; to be given as a bolus over 60 cm10 minutes Route: IV; Rate: 1 bolus; Site: left antecubital; 18:16 Follow up: Response: No adverse reaction; IV Status: Completed infusion; IV Intake: cm10 1000ml Disposition: 19:25 Co-signature as Attending Physician, Shoaib Carbone MD I reviewed the patient's care rn provided by the Advanced Practice Provider and agree with the diagnosis and treatment plan. Disposition Summary: 05/19/24 18:00 Discharge Ordered Notes: Location: Home sb4 Problem: an acute exacerbation sb4 Symptoms: have improved sb4 Condition: Stable sb4 Diagnosis - Migraine without aura, not intractable sb4 Followup: sb4 - With: Matteo Fatima MD - When: 1 week - Reason: Further diagnostic work-up, Recheck today's complaints, Re-evaluation by your physician Discharge Instructions: - Discharge Summary Sheet sb4 - Migraine Headache, Jeug-ri-Ceny sb4 Forms: - Patient Portal Instructions sb4 - Leadership Thank You Letter sb4 Prescriptions: - sumatriptan succinate 25 mg Oral tablet - take 25 milligram ORAL route as directed on dose pack take 1 tab at onset of sb4 headache; if no relief may repeat 1 tab after at least 2 hrs; max = 4 tabs/24 hr; 1 Pack; Refills: 0, Product Selection Permitted Signatures: Shoaib Carbone MD MD rn Prokisch, Amanda, RN RN ap3 Nika King, PACarlito PACarlito sb4 Jany Looney RN RN cm10
--- NOTE | 2024-05-19 18:00 | ER ---
Nurse's Notes [facility] Name: Hilario Lezama Age: 34 yrs Sex: Male : 1990 Arrival Date: 05/19/2024 Time: 16:20 Bed 13 Private MD: Diagnosis: Migraine without aura, not intractable Presentation: 05/19 16:30 Chief complaint: Patient states: he started having a migraine approx 1 hour prior to ap3 arrival. patient currently rates his pain as a 10/10 on the pain scale. patient also complains of nausea and sensitivity to light. Coronavirus screen: At this time, the client does not indicate any symptoms associated with coronavirus-19. Ebola Screen: No symptoms or risks identified at this time. Initial Sepsis Screen: Does the patient meet any 2 criteria? No. Patient's initial sepsis screen is negative. Does the patient have a suspected source of infection? No. Patient's initial sepsis screen is negative. Risk Assessment: Do you want to hurt yourself or someone else? Patient reports no desire to harm self or others. Onset of symptoms was May 19, 2024 at 15:30. 16:30 Method Of Arrival: Ambulatory ap3 16:30 Acuity: ANNA 3 ap3 Triage Assessment: 16:31 Headache History: The patient has had previous headaches. General: Appears ap3 uncomfortable, Behavior is calm, cooperative, appropriate for age. Pain: Complains of pain in head Pain currently is 10 out of 10 on a pain scale. Pain began 1 hour ago. Also complains of nausea, photophobia. Neuro: Level of Consciousness is awake, alert, obeys commands, Oriented to person, place, time, situation, Appropriate for age Speech is normal, Facial symmetry appears normal. Cardiovascular: Patient's skin is warm and dry. Respiratory: Airway is patent Respiratory effort is even, unlabored, Respiratory pattern is regular, symmetrical. GI: Reports nausea. Historical: - Allergies: 16:31 No Known Allergies; ap3 - PMHx: 16:31 Migraines; ap3 - PSHx: 16:31 Tonsillectomy; ap3 - Immunization history:: Adult Immunizations up to date. - Infectious Disease History:: Denies. - Social history:: Smoking status: Patient denies any tobacco usage or history of. Screenin:32 [facility] ED Fall Risk Assessment (Adult) History of falling in the last 3 months, ap3 including since admission No falls in past 3 months (0 pts) Confusion or Disorientation No (0 pts) Intoxicated or Sedated No (0 pts) Impaired Gait No (0 pts) Mobility Assist Device Used No (0 pt) Altered Elimination No (0 pt) Score/Fall Risk Level 0 - 2 = Low Risk Oriented to surroundings, Maintained a safe environment, Educated pt \T\ family on fall prevention, incl call for assistance when getting out of bed, Assessed \T\ reinforced patient's understanding of fall precautions, Hourly rounding (assess needs \T\ fall precautionary measures) done, Used ambulatory aids as needed (educated on \T\ assisted with). Abuse screen: Denies threats or abuse. Nutritional screening: No deficits noted. Tuberculosis screening: No symptoms or risk factors identified. Assessment: 17:10 General: Appears uncomfortable, Behavior is calm, cooperative. Pain: Complains of pain cm10 in head Pain does not radiate. Pain currently is 10 out of 10 on a pain scale. Quality of pain is described as aching, pressure, Pain began gradually. Neuro: No deficits noted. Level of Consciousness is awake, alert, obeys commands, Oriented to person, place, time, situation, Appropriate for age. Neuro: Reports headache frontal area. Respiratory: No deficits noted. Airway is patent Respiratory effort is even, unlabored, Respiratory pattern is regular, symmetrical. 18:15 Reassessment: Patient and/or family updated on plan of care and expected duration. Pain cm10 level reassessed. Patient is alert, oriented x 3, equal unlabored respirations, skin warm/dry/pink. Patient denies pain at this time. Patient states feeling better. Patient states symptoms have improved. Vital Signs: 16:30 BP 133 / 95; Pulse 88; Resp 18; Temp 98.5; Pulse Ox 100% ; Weight 88.45 kg; Pain 10/10; ap3 17:30 BP 126 / 86; Pulse 71; Resp 15; Pulse Ox 100% on R/A; cm10 18:00 BP 124 / 87; Pulse 65; Resp 15; Pulse Ox 100% on R/A; cm10 16:30 Pain Scale: Adult ap3 [place] Coma Score: 18:33 Eye Response: spontaneous(4). Motor Response: obeys commands(6). Verbal Response: sb4 oriented(5). Total: 15. ED Course: 16:21 Patient arrived in ED. mr 16:21 N[facility] King [facility]. sb4 16:21 Shoaib Carbone MD is Attending Physician. sb4 16:31 Triage completed. ap3 16:32 Arm band placed on right wrist. ap3 17:12 Missed attempt(s): 20 gauge in right antecubital area. Bleeding controlled, band aid rk3 applied, catheter tip intact. 17:16 Patient has correct armband on for positive identification. Bed in low position. Call cm10 light in reach. Side rails up X 1. Provided Education on: ER process and procedures.. Pulse ox on. NIBP on. 17:17 Inserted saline lock: 20 gauge in left antecubital area, using aseptic technique. cm10 Flushed with 10 mL NS. 17:19 Jany Looney, GRECIA is Primary Nurse. cm10 18:00 Matteo Fatima MD is Referral Physician. sb4 18:15 No provider procedures requiring assistance completed. IV discontinued, intact, cm10 bleeding controlled, No redness/swelling at site. Pressure dressing applied. Administered Medications: 17:16 Drug: diphenhydrAMINE IVP 25 mg IVP once Route: IVP; Site: left antecubital; cm10 18:14 Follow up: Response: No adverse reaction cm10 17:16 Drug: metoCLOPramide IVP 10 mg IVP once; over 1 to 2 minutes Route: IVP; Site: left cm10 antecubital; 18:14 Follow up: Response: No adverse reaction cm10 17:16 Drug: Decadron - Dexamethasone IVP 10 mg IVP once Route: IVP; Site: left antecubital; cm10 18:14 Follow up: Response: No adverse reaction cm10 17:16 Drug: NS 0.9% IV 1000 ml IV at 1 bolus Per protocol; to be given as a bolus over 60 cm10 minutes Route: IV; Rate: 1 bolus; Site: left antecubital; 18:16 Follow up: Response: No adverse reaction; IV Status: Completed infusion; IV Intake: cm10 1000ml Medication: 18:15 VIS not applicable for this client. cm10 Intake: 18:16 IV: 1000ml; Total: 1000ml. cm10 Outcome: 18:00 Discharge ordered by MD. hernandez 18:15 Discharged to home ambulatory, with family, 10 18:15 Condition: good 18:15 Discharge instructions given to patient, Instructed on discharge instructions, follow up and referral plans. Demonstrated understanding of instructions, follow-up care, 18:15 Patient left the ED. cm10 Signatures: Aziza Gunter, Reg Reg mr Joanne Rose, RN RN ap3 Nika King PA-C PA-C sb4 Martinez, Clarissa, RN RN cm10 Sarah Monge rk3
[2024-05-19 18:20] VITALS: TEMP 98.5; O2SAT 100
[2024-05-19 18:23] VITALS: BP 124/87
== END 2024-05-19 18:15 | disposition home or self-care (01) ==
LOC: ER 16:20
DX: G43.009 Migraine without aura, not intractable, without status migrainosus (principal)
CPT/HCPCS: 96361; 96374; 96375; 99284; J1100; J1200; J2765; J7030

== ENCOUNTER → 2024-10-28 | Emergency (ER) | payer SELFPAY | LOC: ER 16:11 | DX: Z02.9 Encounter for administrative examinations, unspecified (principal) ==

== ENCOUNTER 2024-12-08 11:17 | Emergency (ER) | payer SELFPAY ==
[2024-12-08] MEDS ORDERED: ONDANSETRON 4 MG/2 ML VIAL ONE (11:46)
[2024-12-08] MEDS ORDERED: METOCLOPRAMIDE 10 MG/2mL INJ ONE (11:46)
[2024-12-08] MEDS ORDERED: NA CHLORIDE 0.9% 1,000 ML ONE (11:46)
[2024-12-08] MEDS ORDERED: DIPHENHYDRAMINE 50 MG/ML VIAL ONE (11:46)
--- NOTE | 2024-12-08 13:37 | EDPHYS ---
Physician Documentation [facility] Name: Hilario Lezama Age: 34 yrs Sex: Male : 1990 Arrival Date: 12/08/2024 Time: 11:17 Bed 5 Private MD: ED Physician Katherine Shoemaker HPI: 12/08 19:11 This 34 yrs old Male presents to ER via Ambulatory with complaints of dr5 Vomiting, Headache. 19:11 The patient presents to the emergency department with nausea. Onset: The dr5 symptoms/episode began/occurred acutely. The patient has experienced similar episodes in the past, multiple times, and the symptoms today are exactly the same. Patient is a 34-year-old male with history of migraines coming in with vomiting and headache that started an hour and a half prior to arrival. Patient reports that he has not been able to follow-up with a neurologist for his migraines. Patient reports his headache feels like a vice personal investment adviser around his head. Patient denies chest pain, abdominal pain, shortness of breath, diarrhea, fever, or any other symptoms. Patient reports headache is exactly like previous migraines.. Historical: - Allergies: 11:39 No Known Allergies; ss - PMHx: 11:39 Migraines; ss - PSHx: 11:39 Tonsillectomy; Tonsillectomy; ss - Immunization history:: Adult Immunizations up to date. - Infectious Disease History:: Denies. - Social history:: Smoking status: Patient denies any tobacco usage or history of. ROS: 19:11 Constitutional: as per hpi dr5 Exam: 19:11 Constitutional: This is a well developed, well nourished patient who is awake, alert, dr5 and in no acute distress. Head/Face: Normocephalic, atraumatic. Eyes: Pupils equal round and reactive to light, extra-ocular motions intact. Lids and lashes normal. Conjunctiva and sclera are non-icteric and not injected. Cornea within normal limits. Periorbital areas with no swelling, redness, or edema. Neck: Trachea midline, no thyromegaly or masses palpated, and no cervical lymphadenopathy. Supple, full range of motion without nuchal rigidity, or vertebral point tenderness. No Meningismus. Chest/axilla: Normal chest wall appearance and motion. Nontender with no deformity. No lesions are appreciated. Cardiovascular: Regular rate and rhythm with a normal S1 and S2. Normal PMI, no JVD. No pulse deficits. Respiratory: Lungs have equal breath sounds bilaterally, clear to auscultation. No rales, rhonchi or wheezes noted. No increased work of breathing, no retractions or nasal flaring. Abdomen/GI: Soft, non-tender, non-distended Back: No spinal tenderness. No costovertebral tenderness. Full range of motion. Skin: Warm, dry with normal turgor. Normal color with no rashes, no lesions, and no evidence of cellulitis. MS/ Extremity: Pulses equal, no cyanosis. Neurovascular intact. Full, normal range of motion. Neuro: Awake and alert, GCS 15, oriented to person, place, time, and situation. Cranial nerves II-XII grossly intact. Motor strength 5/5 in all extremities. Sensory grossly intact. Cerebellar exam normal. Normal gait. Vital Signs: 11:38 BP 141 / 104; Pulse 72; Resp 17; Temp 97.9(O); Pulse Ox 99% ; Pain 10/10; ss 13:01 BP 138 / 95; dr5 13:48 BP 138 / 95; Pulse 70; Resp 17; Pulse Ox 99% ; Pain 1/10; ll1 11:38 Pain Scale: Adult ss 13:48 Pain Scale: Adult ll1 NIH Stroke Scale Scores: 19:11 NIHSS Score: 0 dr5 MDM: 11:27 Medical Screening Exam initiated dr5 19:11 Differential diagnosis: Intracranial hemorrhage, migraine, temporal arteritis. Data dr5 reviewed: vital signs, nurses notes. Consideration of Admission/Observation Escalation of care including admission/observation considered. Escalation considered if patient's symptoms did not resolve after medication.. I considered the following discharge prescriptions or medication management in the emergency department I discussed and recommended Over The Counter medications, Medications were administered in the Emergency Department. See MAR. Test considered but Not performed: CT: CT scan considered but NIH of 0 and similar headaches in the past. Will defer.. Historians other than the Patient: Spouse/Significant Other: Significant other at bedside. Care significantly affected by the following chronic conditions: Migraines. Care significantly affected by the following Social Determinants of Health: Poor access to healthcare and/or lack of insurance, Poor access to transportation, Problems related to employment. Counseling: I had a detailed discussion with the patient and/or guardian regarding the historical points, exam findings, and any diagnostic results supporting the discharge/admit diagnosis, the presence of at least one elevated blood pressure reading (>120/80) during this emergency department visit, the need for outpatient follow up, for definitive care, a family practitioner, a neurologist. Medication response: Benadryl, Zofran, Reglan, normal saline. Response to treatment: the patient's symptoms have resolved after treatment, the patient's condition has returned to base line, the patient is now symptom free. Special discussion: Based on the patient's history, exam and DX evaluation, there is no indication for emergent intervention or inpatient TX. It is understood by the patient/guardian that if the SXs persist or worsen they need to return immediately for re-evaluation. I discussed with the patient/guardian in detail that at this point there is no indication for admission to the hospital. It is understood, however, that if the symptoms persist or worsen the patient needs to return immediately for re-evaluation. Based on the history and exam findings, there is no indication for further emergent testing or inpatient evaluation. I discussed with the patient/guardian the need to see the neurologist for further evaluation of the symptoms. ED course: Patient was given medication IV which relieved all symptoms. Patient reports he still much better. Patient tolerated p.o. Will give patient neurologist number for follow-up. All questions answered. Strict ER precautions given. 12/08 11:42 Order name: IV Start; Complete Time: 11:56 dr5 Administered Medications: 11:52 Drug: NS 0.9% IV 1000 ml IV at 1000 ml once; to be given as a bolus over 60 minutes mb9 Route: IV; Rate: 1000 ml; Site: right antecubital; 13:47 Follow up: Response: No adverse reaction; IV Status: Completed infusion; IV Intake: ll1 1000ml 11:52 Drug: Ondansetron IVP 4 mg IVP once; over 2 minutes Route: IVP; Site: right antecubital;mb9 14:04 Follow up: Response: No adverse reaction; Nausea is decreased ll1 11:55 Drug: diphenhydrAMINE IVP 25 mg IVP once Route: IVP; Site: right antecubital; mb9 14:04 Follow up: Response: No adverse reaction ll1 11:58 Drug: metoCLOPramide IVP 10 mg IVP once; over 1 to 2 minutes Route: IVP; Site: right mb9 antecubital; 14:04 Follow up: Response: No adverse reaction; Nausea is decreased ll1 Disposition Summary: 12/08/24 13:36 Discharge Ordered Notes: Location: Home dr5 Condition: Stable dr5 Diagnosis - Migraine without aura, not intractable dr5 Followup: dr5 - With: Emergency Department - When: As needed - Reason: Worsening of condition Followup: dr5 - With: Matteo Fatima MD - When: 1 - 2 days - Reason: Recheck today's complaints, Continuance of care, Re-evaluation by your physician Discharge Instructions: - Discharge Summary Sheet dr5 - Migraine Headache dr5 Forms: - Medication Reconciliation Form dr5 - Patient Portal Instructions dr5 - Leadership Thank You Letter dr5 Prescriptions: - Imitrex 25 mg Oral Tablet - take 1 tablet ORAL route one time - x 1 dose with fluids as early as possible dr5 after the onset of a migraine attack; if headache returns, the dose may be repeated after 2 hours, not to exceed a total daily dose of 8 tablets; 12 tablet; Refills: 0, Product Selection Permitted NIH Stroke Scale - NIH Stroke Score Date: 12/08/2024 Time: 19:11 Total Score = 0 10. Dysarthria (speech clarity - read or repeat words) - 0(Normal) 11. Extinction and Inattention (visual/tactile/auditory/spatial/personal) - 0(No abnormality) 1a. Level of Consciousness (LOC) - 0(Alert) 1b. Level of Consciousness (LOC) (Month \T\ Age) - 0(Both) 1c. LOC Commands (Open \T\ Closes Eyes/Mail Superintendent) - 0(Both) 2. Best Gaze (Lateral Gaze Paresis) - 0(Normal) 3. Visual Field Loss - 0(No visual loss) 4. Facial Palsy - 0(Normal) 5a. Left Arm: Motor (10-second hold) - 0(No drift) 5b. Right Arm: Motor (10-second hold) - 0(No drift) 6a. Left Leg: Motor (5-second hold - always test supine) - 0(No drift) 6b. Right Leg: Motor (5-second hold - always test supine) - 0(No drift) 7. Limb Ataxia (finger/nose \T\ heel/grider - test with eyes open) - 0(Absent) 8. Sensory Loss (pinprick arms/legs/face) - 0(Normal) 9. Best Language: Aphasia (description/naming/reading) - 0(No aphasia) Initials: dr5 Signatures: Stephanie Sánchez, RN RN ss Angel, Aziza Tony RN RN mb9 Darryn Simeon, HIDE STRETCHER HAND-C HIDE STRETCHER HAND-Cdr5 Melina Osborn RN ll1
--- NOTE | 2024-12-08 13:37 | ER ---
Nurse's Notes [facility] Name: Hilario Lezama Age: 34 yrs Sex: Male : 1990 Arrival Date: 12/08/2024 Time: 11:17 Bed 5 Private MD: Diagnosis: Migraine without aura, not intractable Presentation: 12/08 11:38 Chief complaint: Patient states: POLLOCK, N/V that began 1.5 hours ago. Coronavirus screen: ss Client denies travel out of the [place] in the last 14 days. Ebola Screen: Patient denies exposure to infectious person. Patient denies travel to an Ebola-affected area in the 21 days before illness onset. Initial Sepsis Screen: Does the patient meet any 2 criteria? No. Patient's initial sepsis screen is negative. Does the patient have a suspected source of infection? No. Patient's initial sepsis screen is negative. Risk Assessment: Do you want to hurt yourself or someone else? Patient reports no desire to harm self or others. Onset of symptoms was December 08, 2024. 11:38 Method Of Arrival: Ambulatory 11:38 Acuity: ANNA 3 ss Historical: - Allergies: 11:39 No Known Allergies; ss - PMHx: 11:39 Migraines; ss - PSHx: 11:39 Tonsillectomy; Tonsillectomy; ss - Immunization history:: Adult Immunizations up to date. - Infectious Disease History:: Denies. - Social history:: Smoking status: Patient denies any tobacco usage or history of. Screenin:00 [facility] ED Fall Risk Assessment (Adult) History of falling in the last 3 months, mb9 including since admission No falls in past 3 months (0 pts) Confusion or Disorientation No (0 pts) Intoxicated or Sedated No (0 pts) Impaired Gait No (0 pts) Mobility Assist Device Used No (0 pt) Altered Elimination No (0 pt) Score/Fall Risk Level 0 - 2 = Low Risk Oriented to surroundings, Maintained a safe environment, Educated pt \T\ family on fall prevention, incl call for assistance when getting out of bed. Abuse screen: Denies threats or abuse. Nutritional screening: No deficits noted. Tuberculosis screening: No symptoms or risk factors identified. Assessment: 11:59 General: Appears in no apparent distress. Behavior is calm, cooperative. Pain: mb9 Complains of pain in head Pain does not radiate. Pain currently is 10 out of 10 on a pain scale. Quality of pain is described as throbbing, Pain began suddenly. Neuro: Pink Agitation-Sedation Scale (RASS): 0 - Alert and Calm Level of Consciousness is awake, alert, obeys commands, Oriented to person, place, time, situation, Appropriate for age Reports headache. Cardiovascular: Heart tones S1 S2 present Patient's skin is warm and dry. Respiratory: Airway is patent Respiratory effort is even, unlabored, Respiratory pattern is regular, symmetrical. GI: Abdomen is flat, non-distended, Bowel sounds present X 4 quads. Abd is soft and non tender X 4 quads. Reports nausea. : No signs and/or symptoms were reported regarding the genitourinary system. Derm: Skin is pink, warm \T\ dry. Musculoskeletal: Range of motion: intact in all extremities. 13:48 Reassessment: No changes from previously documented assessment. Patient and/or family ll1 updated on plan of care and expected duration. Pain level reassessed. Patient is alert, oriented x 3, equal unlabored respirations, skin warm/dry/pink. Vital Signs: 11:38 BP 141 / 104; Pulse 72; Resp 17; Temp 97.9(O); Pulse Ox 99% ; Pain 10/10; ss 13:01 BP 138 / 95; dr5 13:48 BP 138 / 95; Pulse 70; Resp 17; Pulse Ox 99% ; Pain 1/10; ll1 11:38 Pain Scale: Adult ss 13:48 Pain Scale: Adult ll1 NIH Stroke Scale Scores: 19:11 NIHSS Score: 0 dr5 ED Course: 11:19 Patient arrived in ED. im 11:20 Darryn Simeon FNP-C [facility] dr5 11:20 Katherine Shoemaker MD is Attending Physician. dr5 11:39 Triage completed. ss 11:39 Arm band placed on right wrist. ss 11:44 Aziza Ortiz, GRECIA is Primary Nurse. mb9 11:56 Inserted saline lock: 20 gauge in right antecubital area, using aseptic technique. mb9 Flushed with 10 mL NS. 12:00 Placed in gown. Bed in low position. Call light in reach. Side rails up X 1. Provided mb9 Education on: press call light if needing anything. Client placed on continuous cardiac and pulse oximetry monitoring. NIBP monitoring applied. 12:00 No provider procedures requiring assistance completed. mb9 13:36 Matteo Fatima MD is Referral Physician. dr5 13:47 IV discontinued, intact, bleeding controlled, No redness/swelling at site. Pressure ll1 dressing applied. Administered Medications: 11:52 Drug: NS 0.9% IV 1000 ml IV at 1000 ml once; to be given as a bolus over 60 minutes mb9 Route: IV; Rate: 1000 ml; Site: right antecubital; 13:47 Follow up: Response: No adverse reaction; IV Status: Completed infusion; IV Intake: ll1 1000ml 11:52 Drug: Ondansetron IVP 4 mg IVP once; over 2 minutes Route: IVP; Site: right antecubital;mb9 14:04 Follow up: Response: No adverse reaction; Nausea is decreased ll1 11:55 Drug: diphenhydrAMINE IVP 25 mg IVP once Route: IVP; Site: right antecubital; mb9 14:04 Follow up: Response: No adverse reaction ll1 11:58 Drug: metoCLOPramide IVP 10 mg IVP once; over 1 to 2 minutes Route: IVP; Site: right mb9 antecubital; 14:04 Follow up: Response: No adverse reaction; Nausea is decreased ll1 Medication: 12:00 VIS not applicable for this client. mb9 Intake: 13:47 IV: 1000ml; Total: 1000ml. ll1 Outcome: 13:36 Discharge ordered by . dr5 13:48 Patient left the ED. ll1 13:48 Discharged to home ambulatory, ll1 13:48 Condition: stable 13:48 Discharge instructions given to patient, family, Instructed on discharge instructions, follow up and referral plans. medication usage, Demonstrated understanding of instructions, follow-up care, medications, Prescriptions given X 1, NIH Stroke Scale - NIH Stroke Score Date: 12/08/2024 Time: 19:11 Total Score = 0 10. Dysarthria (speech clarity - read or repeat words) - 0(Normal) 11. Extinction and Inattention (visual/tactile/auditory/spatial/personal) - 0(No abnormality) 1a. Level of Consciousness (LOC) - 0(Alert) 1b. Level of Consciousness (LOC) (Month \T\ Age) - 0(Both) 1c. LOC Commands (Open \T\ Closes Eyes/Sales Appointment Coordinator) - 0(Both) 2. Best Gaze (Lateral Gaze Paresis) - 0(Normal) 3. Visual Field Loss - 0(No visual loss) 4. Facial Palsy - 0(Normal) 5a. Left Arm: Motor (10-second hold) - 0(No drift) 5b. Right Arm: Motor (10-second hold) - 0(No drift) 6a. Left Leg: Motor (5-second hold - always test supine) - 0(No drift) 6b. Right Leg: Motor (5-second hold - always test supine) - 0(No drift) 7. Limb Ataxia (finger/nose \T\ heel/gridre - test with eyes open) - 0(Absent) 8. Sensory Loss (pinprick arms/legs/face) - 0(Normal) 9. Best Language: Aphasia (description/naming/reading) - 0(No aphasia) Initials: dr5 Signatures: Stephanie Sánchez RN RN ss Melina Osborn RN RN ll1 Aziza Ortiz RN RN mb9 Yahaira Young Dustin, LIBRARY TECHNICAL ASSISTANT-C LIBRARY TECHNICAL ASSISTANT-Cdr5
[2024-12-08 13:53] VITALS: TEMP 97.9; O2SAT 99
[2024-12-08 13:54] VITALS: BP 138/95
== END 2024-12-08 13:48 | disposition home or self-care (01) ==
LOC: ER 11:17
DX: G43.009 Migraine without aura, not intractable, without status migrainosus (principal)
CPT/HCPCS: 96361; 96374; 96375; 99284; J1200; J2405; J2765; J7030